=== PATIENT | female | born 1935 | race African-American/Black ===

== ENCOUNTER 2018-02-01 09:15 | Inpatient (IN) ==
--- NOTE | 2018-02-01 09:58 | ED ---
HPI General Chief complaint: GI Bleed Stated complaint: gi Time Seen by Provider: 02/01/18 09:25 Source: patient and family Mode of arrival: ambulatory Limitations: no limitations History of Present Illness HPI Narrative: This is a 82-year-old female with a history of asthma, hyperlipidemia, hypertension, who presents today with complaints of melanotic stool 2 days. Patient reports that she had black sticky stool 2 days ago however over the last 24 hours it has become black and more watery. She denies any bright red blood. She denies any hematemesis. She did states she had emesis 2-3 days ago 1 episode. She denies any decreased urine skin sensation. She does report dyspnea on exertion as well as dizziness on exertion. There is no chest pain, chest pressure. She does report palpitations. No suspicious foods. She does take aspirin 81 mg daily. There are no other blood thinners. MD complaint: melena Onset (ago): day(s) (2) Pain Consistency: intermittent Severity: mild Relieving factors: none Exacerbating factors: none Context: medication/supplement use (Aspirin) Associated symptoms: shortness of breath and weakness Treatments Prior to Arrival: none Related Data Home Medications Medication Instructions Recorded Confirmed aspirin 81 mg PO DAILY 02/01/18 02/01/18 atorvastatin 20 mg PO DAILY 02/01/18 02/01/18 hydrochlorothiazide 12.5 mg PO DAILY 02/01/18 02/01/18 losartan 100 mg PO DAILY 02/01/18 02/01/18 montelukast 10 mg PO QPM 02/01/18 02/01/18 Allergies Allergy/AdvReac Type Severity Reaction Status Date / Time benazepril Allergy Intermediate angioedema Verified 02/01/18 09:27 captopril Allergy Intermediate angioedema Verified 02/01/18 09:27 enalaprilat Allergy Intermediate angioedema Verified 02/01/18 09:27 fosinopril Allergy Intermediate angioedema Verified 02/01/18 09:27 lisinopril Allergy Intermediate angioedema Verified 02/01/18 09:27 quinapril Allergy Intermediate angioedema Verified 02/01/18 09:27 Review of Systems Except as stated in HPI: all other systems reviewed are negative Constitutional Denies chills, Denies fever(s) and Denies headache(s) Eyes Denies blurry vision and Denies diplopia ENT Denies bleeding gums and Reports dizziness Cardiovascular Denies chest pain, Denies diaphoresis, Denies syncope and Reports lightheadedness Respiratory Denies chest congestion, Denies cough and Reports other (Dyspnea on exertion) Gastrointestinal Denies abdominal pain, Reports melena, Denies hematochezia, Denies coffee ground emesis, Denies loose stools and Reports vomiting (1 episode 2 days ago) Genitourinary Denies hematuria, Denies urinary frequency and Denies dysuria Musculoskeletal Denies back pain, Denies myalgias and Denies muscle weakness Integumentary/Breasts Denies bleeding lesions Neurologic Reports dizziness and Denies headache(s) Hematologic/Lymphatic Denies easy bleeding and Denies easy bruising [facility] Medical History Medical History Hypercholesterolemia (Acute) Hypertension (Acute) Social History Social History Substance History: No History of Abuse Smoking Status: Never smoker How Often Do You Have a Drink Containing Alcohol: Never Recent Travel in [facility] within the Last 8 Weeks: No Recent Out of Country Travel within the Last 8 Weeks: No Immunization History Tetanus Immunization: Unsure Exam Narrative Exam Narrative: GENERAL: Well-developed well-nourished female in no acute respiratory distress. SKIN: Focused skin assessment warm/dry. HEAD: Atraumatic. Normocephalic. EYES: Pupils equal and round. No scleral icterus. No injection or drainage. ENT: No nasal bleeding or discharge. Mucous membranes pink and moist. NECK: Trachea midline. Supple. CARDIOVASCULAR: Sinus tachycardia with rate of 103. No murmur appreciated. RESPIRATORY: No accessory muscle use. Clear to auscultation. Breath sounds equal bilaterally. GASTROINTESTINAL: Abdomen soft, non-tender, nondistended. Hepatic and splenic margins not palpable. RECTAL EXAM: No masses or tenderness, stool is dark brown. It immediately turned blue on Hemoccult testing. MUSCULOSKELETAL: No obvious deformities. No clubbing. No cyanosis. No edema. NEUROLOGICAL: Awake and alert. No obvious cranial nerve deficits. Motor grossly within normal limits. Normal speech. Course Initial Documented Vital Signs Temperature 98.6 F 02/01/18 09:18 Pulse Rate 102 H 02/01/18 09:18 Respiratory Rate 16 02/01/18 09:18 Blood Pressure 150/65 H 02/01/18 09:18 Pulse Oximetry 100 02/01/18 09:18 Last Documented Vital Signs Temperature 98.6 F 02/01/18 09:18 Pulse Rate 102 H 02/01/18 09:18 Respiratory Rate 16 02/01/18 09:18 Blood Pressure 150/65 H 02/01/18 09:18 Pulse Oximetry 98 02/01/18 09:25 Medical Decision Making MDM Narrative Medical decision making narrative: 82-year-old female presents today with melena. Patient also reports exertional dyspnea and dizziness. Patient has a hemoglobin of 5.3. She was heme positive on rectal examination. She will be transfused 2 units of packed red blood cells. Cardiac enzymes and EKG are pending at this time. Case was [facility] who agrees for the admission. Patient has been placed on a Protonix drip. Differential Diagnosis Differential Diagnosis: Peptic ulcer disease versus upper GI bleed versus lower GI bleed Lab Data Result diagrams: 02/01/18 09:30 02/01/18 09:30 Lab Results 02/01/18 02/01/18 02/01/18 Range/Units 09:30 09:30 09:30 WBC 10.3 (4.0-11.0) th/mm3 RBC 1.79 L (4.00-5.30) mil/mm3 Hgb 5.6 L* (11.6-15.3) gm/dL Hct 16.6 L* (35.0-46.0) % MCV 92.9 (80.0-100.0) fL MCH 31.1 (27.0-34.0) pg MCHC 33.4 (32.0-36.0) % RDW 14.6 (11.6-17.2) % Plt Count 188 (150-450) th/mm3 MPV 8.9 (7.0-11.0) fL Prelim Diff (Auto) Slide review pending Neut % (Auto) 53.1 (16.0-70.0) % Lymph % (Auto) 35.4 (9.0-44.0) % [place] % (Auto) 9.8 H (0.0-8.0) % Eos % (Auto) 1.4 (0.0-4.0) % Baso % (Auto) 0.3 (0.0-2.0) % Neut # (Auto) 5.5 (1.8-7.7) th/mm3 Lymph # (Auto) 3.7 (1.0-4.8) th/mm3 [place] # (Auto) 1.0 H (0.0-0.9) th/mm3 Eos # (Auto) 0.1 (0.0-0.4) th/mm3 Baso # (Auto) 0.0 (0.0-0.2) th/mm3 WBC Differential . Diff Scan Auto diff confirmed Differential Comment . PT 9.8 (9.8-11.6) sec INR 1.0 Ratio APTT 21.4 L (24.3-30.1) sec Sodium 140 (136-145) meq/L Potassium 3.9 (3.5-5.1) meq/L Chloride 109 H (98-107) meq/L Carbon Dioxide 20.9 L (21.0-32.0) meq/L Anion Gap 10 (5-15) meq/L BUN 73 H (7-18) mg/dL Creatinine 2.01 H (0.50-1.00) mg/dL Estimated GFR 29 L (>89) mL/min Random Glucose 123 H (74-106) mg/dL Calcium 8.6 (8.5-10.1) mg/dL Total Bilirubin 0.3 (0.2-1.0) mg/dL AST 14 L (15-37) U/L ALT 19 (10-53) U/L Alkaline Phosphatase 66 (45-117) U/L Total Protein 6.9 (6.4-8.2) g/dL Albumin 3.4 (3.4-5.0) g/dL Blood Type MTS Gel Crossmatch 02/01/18 02/01/18 Range/Units 09:30 10:46 WBC (4.0-11.0) th/mm3 RBC (4.00-5.30) mil/mm3 Hgb (11.6-15.3) gm/dL Hct (35.0-46.0) % MCV (80.0-100.0) fL MCH (27.0-34.0) pg MCHC (32.0-36.0) % RDW (11.6-17.2) % Plt Count (150-450) th/mm3 MPV (7.0-11.0) fL Prelim Diff (Auto) Neut % (Auto) (16.0-70.0) % Lymph % (Auto) (9.0-44.0) % [place] % (Auto) (0.0-8.0) % Eos % (Auto) (0.0-4.0) % Baso % (Auto) (0.0-2.0) % Neut # (Auto) (1.8-7.7) th/mm3 Lymph # (Auto) (1.0-4.8) th/mm3 [place] # (Auto) (0.0-0.9) th/mm3 Eos # (Auto) (0.0-0.4) th/mm3 Baso # (Auto) (0.0-0.2) th/mm3 WBC Differential Diff Scan Differential Comment PT (9.8-11.6) sec INR Ratio APTT (24.3-30.1) sec Sodium (136-145) meq/L Potassium (3.5-5.1) meq/L Chloride (98-107) meq/L Carbon Dioxide (21.0-32.0) meq/L Anion Gap (5-15) meq/L BUN (7-18) mg/dL Creatinine (0.50-1.00) mg/dL Estimated GFR (>89) mL/min Random Glucose (74-106) mg/dL Calcium (8.5-10.1) mg/dL Total Bilirubin (0.2-1.0) mg/dL AST (15-37) U/L ALT (10-53) U/L Alkaline Phosphatase (45-117) U/L Total Protein (6.4-8.2) g/dL Albumin (3.4-5.0) g/dL Blood Type B Positive MTS Gel Crossmatch See Detail Discharge Plan Discharge Disposition Patient Disposition: 30 Still Patient Discharge Details Diagnosis: Upper gastrointestinal hemorrhage, Melena, Symptomatic anemia, HTN ( hypertension), Dyslipidemia Physicians Team ED Provider: Alphonse Julian Primary Care Provider: Britany Garg Rxs /Orders / Referrals /Forms Prescriptions: No Action atorvastatin 20 mg Tablet 20 mg PO DAILY RF: 0 aspirin 81 mg Tablet,Chewable 81 mg PO DAILY RF: 0 montelukast 10 mg Tablet 10 mg PO QPM RF: 0 losartan 100 mg Tablet 100 mg PO DAILY RF: 0 hydrochlorothiazide 12.5 mg Tablet 12.5 mg PO DAILY RF: 0 Discharge Interventions Interventions: Vital Signs Last Done: 02/01/18 09:18 Status ED Status: With Doctor
[2018-02-01] MEDS ORDERED: Sodium Chlor 0.9% Inj 250 ML IV.SIG SCH (10:00)
[2018-02-01] MEDS: Sod Chloride 0.9% Inj 1,000 ML IV.CONT SCH ×2 (10:06→18:11)
[2018-02-01 10:22] LABS: Baso % (Auto) 0.3 % (0.0-2.0); Eos # (Auto) 0.1 th/mm3 (0.0-0.4); Eos % (Auto) 1.4 % (0.0-4.0); Lymph # (Auto) 3.7 th/mm3 (1.0-4.8); Lymph % (Auto) 35.4 % (9.0-44.0); Mean Corpuscular HGB Conc 33.4 % (32.0-36.0); Mean Corpuscular Hemoglobin 31.1 pg (27.0-34.0); Mean Corpuscular Volume 92.9 fL (80.0-100.0); Mean Platelet Volume 8.9 fL (7.0-11.0); Mono % (Auto) 9.8 % (0.0-8.0); Neut # (Auto) 5.5 th/mm3 (1.8-7.7); Neut % (Auto) 53.1 % (16.0-70.0); Platelet Count 188 th/mm3 (150-450); Red Blood Count 1.79 mil/mm3 (4.00-5.30); Red Cell Distribution Width 14.6 % (11.6-17.2); White Blood Count 10.3 th/mm3 (4.0-11.0)
[2018-02-01 10:30] LABS: Activated Partial Thrombo Time 21.4 sec (24.3-30.1); Hematocrit 16.6 % (35.0-46.0); Hemoglobin 5.6 gm/dL (11.6-15.3); Prothrombin Time 9.8 sec (9.8-11.6)
[2018-02-01 10:41] LABS: Albumin 3.4 g/dL (3.4-5.0); Anion Gap 10 meq/L (5-15); Aspartate Aminotransferase 14 U/L (15-37); Blood Urea Nitrogen 73 mg/dL (7-18); Calcium 8.6 mg/dL (8.5-10.1); Carbon Dioxide 20.9 meq/L (21.0-32.0); Chloride 109 meq/L (98-107); Glomerular Filtration Rate 29 mL/min (>89); Glucose,Random 123 mg/dL (74-106); Potassium 3.9 meq/L (3.5-5.1); Sodium 140 meq/L (136-145)
[2018-02-01] MEDS ORDERED: Pantoprazole Inj 80 MG in Sodium Chlor 0.9% Inj 50 ML IV.SIG ONE (10:42)
[2018-02-01 10:45] LABS: Alanine Aminotransferase 19 U/L (10-53); Alkaline Phosphatase 66 U/L (45-117); Total Protein 6.9 g/dL (6.4-8.2)
[2018-02-01] MEDS: Pantoprazole Inj 80 MG in Sodium Chlor 0.9% Inj 100 ML IV.CONT SCH ×3 (11:03→22:38)
[2018-02-01] MEDS ORDERED: Bisacodyl 10 MG Supp RECTAL PRN (11:56)
[2018-02-01] MEDS ORDERED: Acetaminophen 325 MG Tablet PO PRN (11:56)
--- NOTE | 2018-02-01 13:12 | P.CONGI ---
History of Present Illness Consult date: 02/01/18 Consult reason: Upper GI bleed, symptomatic anemia, melena stools Chief complaint: GI BLEES;SYMPTOMATIC ANEMIA;HTN;HYPERLIPIDEMIA History of Present Illness: This is an obese female who presented to the emergency room today on 02/01/2018. Current symptoms include generalized weakness and fatigue, mild shortness of breath worse with exertion, and dizziness without syncope. Patient also noted symptoms of melena stools for the past 2 days and also notes stools became more dark and watery over the past 24 hours. Patient denies any previous symptoms of rectal bleeding or upper GI bleeding or melena stools or abdominal pain. Patient takes 81 mg of aspirin but no other anticoagulants. Patient also noted some nausea and vomiting 1 after eating some watermelon but is unsure whether it is related to her melena stools and dyspnea. Current labs show hemoglobin 5.6, PT/INR 1, WBC count 10.3, normal bilirubin and normal LFTs. Currently patient denies any further nausea or vomiting and no dysphasia. Patient does note rare dyspepsia last episode this past month after eating oranges or tomatoes. Aggregating factors seem to be related to citrus/acid foods. Patient has a history of constipation but symptoms appear to be functional and patient denies any rectal bleeding and no straining. Last colonoscopy was performed approximately 2 years ago with a history of polyps. Patient states no previous EGD. Positive family (son), history of some unknown type of GI cancer. Patient has 2 daughters who are here at her bedside for supportive care. Patient is awake a fair historian and answered most questions appropriately. <Magda Turpin - Last Filed: 02/01/18 12:53> Review of Systems All other systems reviewed negative except as stated in HPI <Magda Turpin - Last Filed: 02/01/18 12:53> PMFSH - History History Provided By: Patient - Medical History Medical History: Medical History (Last Updated 02/01/18 @ 09:30 by Cherise Dsouza) Hypercholesterolemia Hypertension - Tobacco History Smoking Status: Never smoker - Alcohol History How Often Do You Have a Drink Containing Alcohol: Never - Substance Use History Substance History: No History of Abuse - Travel History Recent Travel in the [place] Within the Last 8 Weeks: No Recent Travel Out of the Country Within the Last 8 Weeks: No - Immunization History Tetanus Immunization: Unsure <Magda Turpin - Last Filed: 02/01/18 12:53> - Medical History Medical History: Medical History (Last Updated 02/01/18 @ 09:30 by Cherise Dsouza) Hypercholesterolemia Hypertension <Yosvany De La O - Last Filed: 02/01/18 15:49> Medications and Allergies Active Medications: Active Medications Acetaminophen (Tylenol) 650 mg PO Q4H PRN PRN Reason: Temp > 100.4 Al Hydroxide/Mg Hydroxide (Milk Of Magnesia Liq) 30 ml PO Q12H PRN PRN Reason: Mild Constipation Bisacodyl (Dulcolax Supp) 10 mg RECTAL DAILY PRN PRN Reason: SEVERE CONSITIPATION Sodium Chloride (Ns Inj) 1,000 mls @ 125 mls/hr IV.CONT .Q8H ROSE Last Admin: 02/01/18 10:06 Dose: 125 mls/hr Sodium Chloride (Ns Inj) 250 mls @ 15 mls/hr IV.SIG ONCE RSOE Stop: 02/02/18 02:39 Pantoprazole Sodium 80 mg/ (Sodium Chloride) 100 mls @ 10 mls/hr IV.CONT CONT ROSE Last Admin: 02/01/18 11:06 Dose: 10 mls/hr Potassium Chloride/Dextrose/Sod Cl (D5w/1/2ns + Kcl 20 Meq Inj) 1,000 mls @ 75 mls/hr IV.CONT .[id number] ROSE Lactulose (Lactulose Liq) 30 ml PO DAILY PRN PRN Reason: SEVERE CONSITIPATION Ondansetron HCl (Zofran Odt) 4 mg SL Q6H PRN PRN Reason: NAUSEA OR VOMITING Sennosides (Senokot) 17.2 mg PO Q12H PRN PRN Reason: Moderate Constipation Sodium Chloride (Ns Flush) 2 ml IV.FLUSH PRN PRN PRN Reason: FLUSH AFTER USING IV ACCESS Last Admin: 02/01/18 10:06 Dose: 2 ml Sodium Chloride (Ns Flush) 2 ml IV.FLUSH BID ROSE Sodium Chloride (Ns Flush) 2 ml IV.FLUSH PRN PRN PRN Reason: FLUSH AFTER USING IV ACCESS <Magda Turpin - Last Filed: 02/01/18 12:53> Active Medications: Active Medications Acetaminophen (Tylenol) 650 mg PO Q4H PRN PRN Reason: Temp > 100.4 Al Hydroxide/Mg Hydroxide (Milk Of Magnesia Liq) 30 ml PO Q12H PRN PRN Reason: Mild Constipation Bisacodyl (Dulcolax Supp) 10 mg RECTAL DAILY PRN PRN Reason: SEVERE CONSITIPATION Sodium Chloride (Ns Inj) 1,000 mls @ 125 mls/hr IV.CONT .Q8H [facility] Last Admin: 02/01/18 10:06 Dose: 125 mls/hr Sodium Chloride (Ns Inj) 250 mls @ 15 mls/hr IV.SIG ONCE [facility] Stop: 02/02/18 02:39 Pantoprazole Sodium 80 mg/ (Sodium Chloride) 100 mls @ 10 mls/hr IV.CONT CONT [facility] Last Admin: 02/01/18 11:06 Dose: 10 mls/hr Potassium Chloride/Dextrose/Sod Cl (D5w/1/2ns + Kcl 20 Meq Inj) 1,000 mls @ 75 mls/hr IV.CONT .[id number] [facility] Last Admin: 02/01/18 13:32 Dose: 75 mls/hr Lactulose (Lactulose Liq) 30 ml PO DAILY PRN PRN Reason: SEVERE CONSITIPATION Ondansetron HCl (Zofran Odt) 4 mg SL Q6H PRN PRN Reason: NAUSEA OR VOMITING Sennosides (Senokot) 17.2 mg PO Q12H PRN PRN Reason: Moderate Constipation Sodium Chloride (Ns Flush) 2 ml IV.FLUSH PRN PRN PRN Reason: FLUSH AFTER USING IV ACCESS Last Admin: 02/01/18 10:06 Dose: 2 ml Sodium Chloride (Ns Flush) 2 ml IV.FLUSH BID ROSE Sodium Chloride (Ns Flush) 2 ml IV.FLUSH PRN PRN PRN Reason: FLUSH AFTER USING IV ACCESS <Yosvany De La O E - Last Filed: 02/01/18 15:49> Allergies Allergy/AdvReac Type Severity Reaction Status Date / Time benazepril Allergy Intermediate angioedema Verified 02/01/18 09:27 captopril Allergy Intermediate angioedema Verified 02/01/18 09:27 enalaprilat Allergy Intermediate angioedema Verified 02/01/18 09:27 fosinopril Allergy Intermediate angioedema Verified 02/01/18 09:27 lisinopril Allergy Intermediate angioedema Verified 02/01/18 09:27 quinapril Allergy Intermediate angioedema Verified 02/01/18 09:27 Home Medications Medication Instructions Recorded Confirmed Type aspirin 81 mg PO DAILY 02/01/18 02/01/18 History atorvastatin 20 mg PO DAILY 02/01/18 02/01/18 History hydrochlorothiazide 12.5 mg PO DAILY 02/01/18 02/01/18 History losartan 100 mg PO DAILY 02/01/18 02/01/18 History montelukast 10 mg PO QPM 02/01/18 02/01/18 History Exam Vital signs: Vital Signs 02/01/18 09:18 02/01/18 09:25 02/01/18 10:53 Temperature 98.6 F Pulse Rate 102 H Respiratory Rate 16 Blood Pressure 150/65 H Pulse Oximetry 100 98 97 Intake & Output 01/31/18 02/01/18 02/01/18 18:59 06:59 18:59 Intake Total 150 / 150 Balance 150 / 150 Weight 95.254 kg Intake: IV 150 / 150 Protonix Inj 80 MG In NS Inj 100 / 100 100 ML @ 10 mls/hr IV.CONT CONT ROSE Rx#:[id number] Protonix Inj 80 MG In NS Inj 50 50 / 50 ML @ 600 mls/hr IV.SIG BOLUS ONE Rx#:[id number] - Constitutional mild distress, morbidly obese - Routine HEENT Exam Head: Present: normocephalic, atraumatic ENT: Present: mucous membranes dry - Routine Neck Exam Present: supple - Routine Cardiovascular Exam Present: RRR (Heart rate 102), tachycardia - Routine Abdominal Exam Present: soft, normoactive bowel sounds (Round, bowel sounds active no obvious pain with light palpation) - Routine Skin Exam Present: intact, pallor (Mucous membranes) - Routine Neurological Exam Present: alert (Answer simple questions) <Magda Turpin - Last Filed: 02/01/18 12:53> Vital signs: Vital Signs 02/01/18 09:18 02/01/18 09:25 02/01/18 10:53 Temperature 98.6 F Pulse Rate 102 H Respiratory Rate 16 Blood Pressure 150/65 H Pulse Oximetry 100 98 97 02/01/18 13:32 02/01/18 14:41 07/20/18 14:51 Temperature 98.3 F 98.4 F Pulse Rate 76 74 72 Respiratory Rate 18 18 Blood Pressure 147/82 H 121/57 L 107/52 L Pulse Oximetry 100 98 Intake & Output 01/31/18 02/01/18 02/01/18 18:59 06:59 18:59 Intake Total 150 / 150 Balance 150 / 150 Weight 95.254 kg Intake: IV 150 / 150 Protonix Inj 80 MG In NS Inj 100 / 100 100 ML @ 10 mls/hr IV.CONT CONT ROSE Rx#:[id number] Protonix Inj 80 MG In NS Inj 50 50 / 50 ML @ 600 mls/hr IV.SIG BOLUS ONE Rx#:[id number] Intake (Blood Product) Amt 0 / 0 Rbc As-3 Leukoreduced Unit 0 / 0 [id number] <Yosvany De La O E - Last Filed: 02/01/18 15:49> Results - Labs CBC & Chem 7: 02/01/18 09:30 02/01/18 09:30 Labs: Laboratory Results - last 24 hr 02/01/18 02/01/18 02/01/18 09:30 09:30 09:30 WBC 10.3 RBC 1.79 L Hgb 5.6 L* Hct 16.6 L* MCV 92.9 MCH 31.1 MCHC 33.4 RDW 14.6 Plt Count 188 MPV 8.9 Prelim Diff (Auto) Slide review pending Neut % (Auto) 53.1 Lymph % (Auto) 35.4 [place] % (Auto) 9.8 H Eos % (Auto) 1.4 Baso % (Auto) 0.3 Neut # (Auto) 5.5 Lymph # (Auto) 3.7 [place] # (Auto) 1.0 H Eos # (Auto) 0.1 Baso # (Auto) 0.0 WBC Differential . Diff Scan Auto diff confirmed Differential Comment . PT 9.8 INR 1.0 APTT 21.4 L Sodium 140 Potassium 3.9 Chloride 109 H Carbon Dioxide 20.9 L Anion Gap 10 BUN 73 H Creatinine 2.01 H Estimated GFR 29 L Random Glucose 123 H Calcium 8.6 Total Bilirubin 0.3 AST 14 L ALT 19 Alkaline Phosphatase 66 Total Protein 6.9 Albumin 3.4 Blood Type Antibody Screen Antibody Identification Antigen Identification MTS Gel Crossmatch 02/01/18 02/01/18 02/01/18 09:30 10:46 12:30 WBC RBC Hgb Hct MCV MCH MCHC RDW Plt Count MPV Prelim Diff (Auto) Neut % (Auto) Lymph % (Auto) [place] % (Auto) Eos % (Auto) Baso % (Auto) Neut # (Auto) Lymph # (Auto) [place] # (Auto) Eos # (Auto) Baso # (Auto) WBC Differential Diff Scan Differential Comment PT INR APTT Sodium Potassium Chloride Carbon Dioxide Anion Gap BUN Creatinine Estimated GFR Random Glucose Calcium Total Bilirubin AST ALT Alkaline Phosphatase Total Protein Albumin Blood Type B Positive Antibody Screen Positive H Antibody Identification Anti-E Antigen Identification E Antigen - NEGATIVE MTS Gel Crossmatch See Detail <Magda Turpin - Last Filed: 02/01/18 12:53> - Labs CBC & Chem 7: 02/01/18 09:30 02/01/18 09:30 Labs: Laboratory Results - last 24 hr 02/01/18 02/01/18 02/01/18 09:30 09:30 09:30 WBC 10.3 RBC 1.79 L Hgb 5.6 L* Hct 16.6 L* MCV 92.9 MCH 31.1 MCHC 33.4 RDW 14.6 Plt Count 188 MPV 8.9 Prelim Diff (Auto) Slide review pending Neut % (Auto) 53.1 Lymph % (Auto) 35.4 [place] % (Auto) 9.8 H Eos % (Auto) 1.4 Baso % (Auto) 0.3 Neut # (Auto) 5.5 Lymph # (Auto) 3.7 [place] # (Auto) 1.0 H Eos # (Auto) 0.1 Baso # (Auto) 0.0 WBC Differential . Diff Scan Auto diff confirmed Differential Comment . PT 9.8 INR 1.0 APTT 21.4 L Sodium 140 Potassium 3.9 Chloride 109 H Carbon Dioxide 20.9 L Anion Gap 10 BUN 73 H Creatinine 2.01 H Estimated GFR 29 L Random Glucose 123 H Calcium 8.6 Total Bilirubin 0.3 AST 14 L ALT 19 Alkaline Phosphatase 66 Total Protein 6.9 Albumin 3.4 Blood Type Antibody Screen Antibody Identification Antigen Identification MTS Gel Crossmatch 02/01/18 02/01/18 02/01/18 09:30 10:46 12:30 WBC RBC Hgb Hct MCV MCH MCHC RDW Plt Count MPV Prelim Diff (Auto) Neut % (Auto) Lymph % (Auto) [place] % (Auto) Eos % (Auto) Baso % (Auto) Neut # (Auto) Lymph # (Auto) [place] # (Auto) Eos # (Auto) Baso # (Auto) WBC Differential Diff Scan Differential Comment PT INR APTT Sodium Potassium Chloride Carbon Dioxide Anion Gap BUN Creatinine Estimated GFR Random Glucose Calcium Total Bilirubin AST ALT Alkaline Phosphatase Total Protein Albumin Blood Type B Positive Antibody Screen Positive H Antibody Identification Non-Specific Agglutinin Antigen Identification E Antigen - NEGATIVE MTS Gel Crossmatch See Detail <Yosvany De La O E - Last Filed: 02/01/18 15:49> Assessment and Plan (1) History of constipation Status: Acute Code(s): Z87.19 - Personal history of other diseases of the digestive system (2) Upper gastrointestinal hemorrhage Status: Acute Code(s): K92.2 - Gastrointestinal hemorrhage, unspecified (3) Melena Status: Acute Code(s): K92.1 - Melena (4) Symptomatic anemia Status: Acute Code(s): D64.9 - Anemia, unspecified - Plan 82-year-old obese female presented to the emergency room on 02/01/2018 with the following symptoms: Symptomatic anemia. Current hemoglobin 5.6 on admission to the emergency room. No leukocytosis current WBC count 10.3. Patient takes aspirin 81 mg daily. Melena stools, 2 day onset with some watery melena stool for the last 24 hours. No previous history known Nausea and vomiting 1 after eating watermelon, 2 day onset, unaware if it is related to her anemia symptoms. Dyspnea probably related to symptomatic anemia Dizziness near syncopal episode secondary to symptomatic anemia probable Positive family history with patient's son, GI cancer, unknown what type. History of polyps, colonoscopy approximately 2 years ago and states her next colonoscopy will be due next year No previous EGD to patient's recollection. Other labs show normal bilirubin and normal LFTs. Plan Diet n.p.o. for now, patient has not eaten anything today or drink anything Consent for EGD today after 3 PM Transfuse before EGD, 2 units ordered, blood not ready yet Protonix drip IV hydration IV fluids Monitor labs Bowel regimen as needed Further recommendations to follow Patient was seen per myself and Dr. De La O, this note was written on his behalf. <Magda Turpin M - Last Filed: 02/01/18 12:53> (1) History of constipation Status: Acute Code(s): Z87.19 - Personal history of other diseases of the digestive system (2) Upper gastrointestinal hemorrhage Status: Acute Code(s): K92.2 - Gastrointestinal hemorrhage, unspecified (3) Melena Status: Acute Code(s): K92.1 - Melena (4) Symptomatic anemia Status: Acute Code(s): D64.9 - Anemia, unspecified - Attending Attestation Patient seen and examined Agree with above Continue with current supportive care Monitor labs EGD today <Ysovany De La O E - Last Filed: 02/01/18 15:49>
[2018-02-01] MEDS: KCL 20 mEq/D5W/NaCl 0.45% Inj 1,000 ML IV.CONT SCH (13:32)
[2018-02-01] MEDS ORDERED: Dextrose 50% in Water 50 ML Vial IV.PUSH PRN (15:50)
--- NOTE | 2018-02-01 15:50 | P.HPIM ---
History of Present Illness Primary Care Physician: [facility] Chief Complaint: Black stools History of Present Illness: 82-year-old female with a history of hypertension hyperlipidemia, borderline diabetes mellitus type 2 presents to emergency room with a 2 day history of having black tarry stools and symptoms of increased fatigue and mild shortness of breath at rest. she denies any bloody stools. She reports her stools has been more loose than normal but did not have any diarrhea. She denies any unusual oral food intake over the past week. She does take aspirin on a daily basis and does not take any [id number] NSAIDs. She denies any significant abdominal pain associated with the symptoms. She denies any symptoms of dysuria or frequency urgency. Inpatient Certification: I certify that the inpatient services were ordered in accordance with Medicare regulations governing the order. This includes certification that hospital inpatient services are reasonable and necessary and in the case of services not specified as inpatient-only under 42 CFR 419.22(n), that they are appropriately provided as inpatient services in accordance to with the 2-midnight benchmark under 43 CFR 412.3(e) Estimated Total Length of Stay (Days): 3 Plans for Post Hospital Care: Not yet determined Review of Systems All other systems reviewed negative except as stated in HPI PMFSH - History History Provided By: Patient - Medical History Medical History: Medical History (Last Updated 02/01/18 @ 15:45 by Kyra Long MD) Diabetes Hypercholesterolemia Hypertension - Surgical History Surgical History: Surgical History (Last Updated 02/01/18 @ 15:46 by Kyra Long MD) H/O removal of cyst - Family History Family History: Family History (Last Updated 02/01/18 @ 15:46 by yKra Long MD) Mother Family history of hypertension - Tobacco History Second Hand Smoke Exposure: No Smoking Status: Never smoker - Alcohol History How Often Do You Have a Drink Containing Alcohol: Never - Substance Use History Substance History: No History of Abuse - Travel History Recent Travel in the [place] Within the Last 8 Weeks: No Recent Travel Out of the Country Within the Last 8 Weeks: No - Immunization History Tetanus Immunization: Unsure Medications and Allergies Active Medications: Active Medications Acetaminophen (Tylenol) 650 mg PO Q4H PRN PRN Reason: Temp > 100.4 Al Hydroxide/Mg Hydroxide (Milk Of Magnesia Liq) 30 ml PO Q12H PRN PRN Reason: Mild Constipation Bisacodyl (Dulcolax Supp) 10 mg RECTAL DAILY PRN PRN Reason: SEVERE CONSITIPATION Sodium Chloride (Ns Inj) 1,000 mls @ 125 mls/hr IV.CONT .Q8H PENDING SALE TO [facility] Last Admin: 02/01/18 10:06 Dose: 125 mls/hr Sodium Chloride (Ns Inj) 250 mls @ 15 mls/hr IV.SIG ONCE PENDING SALE TO [facility] Stop: 02/02/18 02:39 Pantoprazole Sodium 80 mg/ (Sodium Chloride) 100 mls @ 10 mls/hr IV.CONT CONT PENDING SALE TO [facility] Last Admin: 02/01/18 11:06 Dose: 10 mls/hr Potassium Chloride/Dextrose/Sod Cl (D5w/1/2ns + Kcl 20 Meq Inj) 1,000 mls @ 75 mls/hr IV.CONT .[id number] PENDING SALE TO [facility] Last Admin: 02/01/18 13:32 Dose: 75 mls/hr Lactulose (Lactulose Liq) 30 ml PO DAILY PRN PRN Reason: SEVERE CONSITIPATION Ondansetron HCl (Zofran Odt) 4 mg SL Q6H PRN PRN Reason: NAUSEA OR VOMITING Sennosides (Senokot) 17.2 mg PO Q12H PRN PRN Reason: Moderate Constipation Sodium Chloride (Ns Flush) 2 ml IV.FLUSH PRN PRN PRN Reason: FLUSH AFTER USING IV ACCESS Last Admin: 02/01/18 10:06 Dose: 2 ml Sodium Chloride (Ns Flush) 2 ml IV.FLUSH BID PENDING SALE TO [facility] Sodium Chloride (Ns Flush) 2 ml IV.FLUSH PRN PRN PRN Reason: FLUSH AFTER USING IV ACCESS Allergies Allergy/AdvReac Type Severity Reaction Status Date / Time benazepril Allergy Intermediate angioedema Verified 02/01/18 09:27 captopril Allergy Intermediate angioedema Verified 02/01/18 09:27 enalaprilat Allergy Intermediate angioedema Verified 02/01/18 09:27 fosinopril Allergy Intermediate angioedema Verified 02/01/18 09:27 lisinopril Allergy Intermediate angioedema Verified 02/01/18 09:27 quinapril Allergy Intermediate angioedema Verified 02/01/18 09:27 Home Medications Medication Instructions Recorded Confirmed Type aspirin 81 mg PO DAILY 02/01/18 02/01/18 History atorvastatin 20 mg PO DAILY 02/01/18 02/01/18 History hydrochlorothiazide 12.5 mg PO DAILY 02/01/18 02/01/18 History losartan 100 mg PO DAILY 02/01/18 02/01/18 History montelukast 10 mg PO QPM 02/01/18 02/01/18 History Exam Vital signs: Vital Signs 02/01/18 09:18 02/01/18 09:25 02/01/18 10:53 Temperature 98.6 F Pulse Rate 102 H Respiratory Rate 16 Blood Pressure 150/65 H Pulse Oximetry 100 98 97 02/01/18 13:32 02/01/18 14:41 02/01/18 14:51 Temperature 98.3 F 98.4 F Pulse Rate 76 74 72 Respiratory Rate 19 18 18 Blood Pressure 147/82 H 121/57 L 107/52 L Pulse Oximetry 100 98 Intake & Output 01/31/18 02/01/18 02/01/18 18:59 06:59 18:59 Intake Total 150 / 150 Balance 150 / 150 Weight 95.254 kg Intake: IV 150 / 150 Protonix Inj 80 MG In NS Inj 100 / 100 100 ML @ 10 mls/hr IV.CONT [facility] Rx#:[id number] Protonix Inj 80 MG In NS Inj 50 50 / 50 ML @ 600 mls/hr IV.SIG BOLUS ONE Rx#:[id number] Intake (Blood Product) Amt 0 / 0 Rbc As-3 Leukoreduced Unit 0 / 0 [id number] Narrative: GENERAL: Well-nourished well-developed -[place] female in no acute distress SKIN: Warm and dry. HEAD: Atraumatic. Normocephalic. EYES: Pupils equal and round. No scleral icterus. No injection or drainage. ENT: No nasal bleeding or discharge. Mucous membranes pink and moist. NECK: Trachea midline. No JVD. CARDIOVASCULAR: Regular rate and rhythm. RESPIRATORY: No accessory muscle use. Clear to auscultation. Breath sounds equal bilaterally. GASTROINTESTINAL: Abdomen soft, obese, non-tender, nondistended. Hepatic and splenic margins not palpable. MUSCULOSKELETAL: Extremities without clubbing, cyanosis, or edema. No obvious deformities. NEUROLOGICAL: Awake and alert to person place time and situation. No obvious cranial nerve deficits. Motor grossly within normal limits. Five out of 5 muscle strength in the arms and legs. Normal speech. PSYCHIATRIC: Appropriate mood and affect; insight and judgment normal. Results - Labs CBC & Chem 7: 02/01/18 09:30 02/01/18 09:30 Labs: Short CBC 02/01/18 Range/Units 09:30 WBC 10.3 (4.0-11.0) th/mm3 Hgb 5.6 L* (11.6-15.3) gm/dL Hct 16.6 L* (35.0-46.0) % Plt Count 188 (150-450) th/mm3 BMP 02/01/18 09:30 Sodium 140 Potassium 3.9 Chloride 109 H Carbon Dioxide 20.9 L BUN 73 H Creatinine 2.01 H Calcium 8.6 Liver Function 02/01/18 Range/Units 09:30 Total Bilirubin 0.3 (0.2-1.0) mg/dL AST 14 L (15-37) U/L ALT 19 (10-53) U/L Alkaline Phosphatase 66 (45-117) U/L Albumin 3.4 (3.4-5.0) g/dL Caprini VTE Risk Assessment Caprini VTE Risk Assessment: Moderate/High Risk (score >= 2) VTE Pharmacological Exception Reason: Active bleeding Caprini Risk Assessment Model: Point Value = 1 Point Value = 2 Point Value = 3 Point Value = 5 Age 41-60 Minor surgery BMI > 25 kg/m2 Swollen legs Varicose veins or History of unexplained or recurrent spontaneous Oral contraceptives or hormone replacement Sepsis (< 1 month) Serious lung disease, including pneumonia (< 1 month) Abnormal pulmonary function Acute myocardial infarction Congestive heart failure (< 1 month) History of inflammatory bowel disease Medical patient at bed rest Age 61-74 Arthroscopic surgery Major open surgery (> 45 min) Laparoscopic surgery (> 45 min) Malignancy Confined to bed (> 72 hours) Immobilizing plaster cast Central venous access Age >= 75 History of VTE Family history of VTE Factor V Leiden Prothrombin [id number] Lupus anticoagulant Anticardiolipin antibodies Elevated serum homocysteine Heparin-induced thrombocytopenia Other congenital or acquired thrombophilia Stroke (< 1 month) Elective arthroplasty Hip, pelvis, or leg fracture Acute spinal cord injury (< 1 month) Prophylaxis Regimen: Total Risk Factor Score Risk Level Prophylaxis Regimen 0-1 Low Early ambulation 2 Moderate Order ONE of the following: *Sequential Compression Device (SCD) *Heparin 5000 units SQ BID 3-4 Higher Order ONE of the following medications: *Heparin 5000 units SQ TID *Enoxaparin/Lovenox 40 mg SQ daily (WT < 150 kg, CrCl > 30 mL/min) *Enoxaparin/Lovenox 30 mg SQ daily (WT < 150 kg, CrCl > 10-29 mL/min) *Enoxaparin/Lovenox 30 mg SQ BID (WT < 150 kg, CrCl > 30 mL/min) AND/OR *Sequential Compression Device (SCD) 5 or more Highest Order ONE of the following medications: *Heparin 5000 units SQ TID (Preferred with Epidurals) *Enoxaparin/Lovenox 40 mg SQ daily (WT < 150 kg, CrCl > 30 mL/min) *Enoxaparin/Lovenox 30 mg SQ daily (WT < 150 kg, CrCl > 10-29 mL/min) *Enoxaparin/Lovenox 30 mg SQ BID (WT < 150 kg, CrCl > 30 mL/min) AND *Sequential Compression Device (SCD) Assessment and Plan - Plan 82-year-old female with a history of hypertension hyperlipidemia on aspirin 81 mg p.o. daily presents with 2 day history of black tarry stools 1. Severe anemia with upper GI bleed -transfuse 2 units of packed red blood cell and monitor hemoglobin hematocrit. GI consult has been placed and patient is currently n.p.o. for EGD evaluation. Continue with Protonix drip, aspirin currently on hold. 2. Hypertensionantihypertensive currently on hold due to G I bleed, will restart when stabilized. 3. Hyperlipidemiaresume home statin 4. Diabetes mellitus, diet controlledAccu-Cheks with sliding scale insulin 5. Acute kidney injury superimposed on suspecting chronic kidney disease stage III likely due to GI bleed and dehydrationIV fluid hydration and repeat BUN/ creatinine. Avoid nephrotoxins. 6. DVT prophylaxisanticoagulation contraindicated secondary to active GI bleed H&P: Quality - VTE Deep Vein Thrombosis/Pulmonary Embolism Present on Admission: No
--- NOTE | 2018-02-01 16:34 | P.PCN ---
Date of procedure: 02/01/18 Pre-op diagnosis: Upper GI bleed, anemia Procedure: PROCEDURE PERFORMED EGD with biopsies INDICATION FOR PROCEDURE Upper GI bleed, anemia PROCEDURE: The procedure, risks and benefits were discussed with Patient/POA and informed consent was obtained. Anesthesia sedated Patient with Diprivan. Patient was placed in the left lateral decubitus position. EGD: The Pentax videoscope was introduced through the oropharynx and advanced to the second portion of the duodenum under direct visualization. Retroflexion was performed in the stomach. FINDINGS: The esophagus this was unremarkable except for irregularity at the Z line suggestive of possible Goff's this was biopsied The stomach the mucosa appeared to be unremarkable within normal limits there was an antral nodule possibly even a submucosal mass with a dimple possibly suggesting pancreatic rest biopsy was taken for further evaluation if negative consider endoscopic ultrasound The duodenum there were linear ulcerations in the duodenal bulb with no obvious visible vessel and no active bleeding this area was biopsied the rest of the duodenum was unremarkable ESTIMATED BLOOD LOSS: None SPECIMENS REMOVED: Gastric and duodenal biopsies COMPLICATIONS: None IMPRESSION: Irregular Z line Antral nodule/submucosal mass Duodenal ulcer PLAN: Await biopsies Avoid NSAIDs and aspirin Continue with PPI Advance diet as tolerated Monitor labs and transfuse as needed Consider endoscopic ultrasound as an outpatient in 2-3 months Anesthesia: MAC Surgeon: Yosvany De La O Condition: stable Disposition: floor
[2018-02-01 18:14] LABS: Creatine Kinase 285 U/L (26-192)
[2018-02-01 18:26] LABS: CKMB Percent 1.4 % (0.0-4.0); Creatine Kinase MB 4.1 ng/mL (0.5-3.6)
[2018-02-01] MEDS: Insulin NovoLOG Aspart Correctional Sugar Inj SQ SCH ×2 (18:32→21:31)
[2018-02-02 00:45] LABS: Hematocrit 20.4 % (35.0-46.0); Hemoglobin 6.9 gm/dL (11.6-15.3)
[2018-02-02] MEDS: KCL 20 mEq/D5W/NaCl 0.45% Inj 1,000 ML IV.CONT SCH ×2 (05:35→18:07)
[2018-02-02] MEDS: Sod Chloride 0.9% Inj 1,000 ML IV.CONT SCH ×3 (05:36→19:41)
[2018-02-02] MEDS ORDERED: Pantoprazole Inj 80 MG in Sodium Chlor 0.9% Inj 100 ML IV.CONT SCH (09:00)
[2018-02-02] MEDS: Insulin NovoLOG Aspart Correctional Sugar Inj SQ SCH ×4 (09:00→21:14)
--- NOTE | 2018-02-02 10:43 | P.PNIM ---
Subjective Interval history: Mrs. Maharaj was afebrile with stable vital signs overnight. Patient states that she had a small bowel movement this morning; she noticed a spot of dark stool but that she did not see obvious blood. Patient agreeable to trying to advance diet. Patient reports that she is feeling better than previously and no longer feels short of breath. No abdominal pain. Frequent urination on IV fluids. Physical Exam Vital signs: Vital Signs 02/01/18 10:53 02/01/18 13:32 02/01/18 14:41 Temperature 98.3 F Pulse Rate 76 74 Respiratory Rate 19 18 Blood Pressure 147/82 H 121/57 L Pulse Oximetry 97 100 02/01/18 14:51 02/01/18 16:41 02/01/18 18:35 Temperature 98.4 F 98.6 F 98.3 F Pulse Rate 72 63 70 Respiratory Rate 18 18 17 Blood Pressure 107/52 L 123/56 L 109/53 L Pulse Oximetry 98 99 98 02/01/18 18:37 02/01/18 20:00 02/02/18 00:00 Temperature 98.2 F 98 F 98.1 F Pulse Rate 64 55 L 55 L Respiratory Rate 17 19 15 Blood Pressure 122/59 L 106/54 L Pulse Oximetry 100 100 02/02/18 04:00 02/02/18 08:00 Temperature 98 F 98.0 F Pulse Rate 56 L 50 L Respiratory Rate 15 18 Blood Pressure 110/59 L 108/54 L Pulse Oximetry 100 100 Intake & Output 02/01/18 02/02/18 02/02/18 18:59 06:59 18:59 Intake Total 400 / 400 1100 / 1100 100 / 100 Balance 400 / 400 1100 / 1100 100 / 100 Weight 95.254 kg 96 kg Intake: IV 150 / 150 1100 / 1100 100 / 100 D5W/1/2NS + KCL 20 mEq Inj 1, 1000 / 1000 000 ML @ 75 mls/hr IV.CONT . [id number] [facility] Rx#:[id number] Protonix Inj 80 MG In NS Inj 100 / 100 100 / 100 100 / 100 100 ML @ 10 mls/hr IV.CONT CONT [facility] Rx#:[id number] Protonix Inj 80 MG In NS Inj 50 50 / 50 ML @ 600 mls/hr IV.SIG BOLUS ONE Rx#:[id number] Oral 0 / 0 Anesthesia Amount 250 / 250 Intake (Blood Product) Amt 0 / 0 0 / 0 Rbc As-3 Leukoreduced Unit 0 / 0 [id number] Rbc As-3 Leukoreduced Unit 0 / 0 0 / 0 [id number] Other: # Voids 5 Date of Last Bowel Movement 02/01/18 Narrative: GENERAL: NAD SKIN: Warm and dry; no lesions EYES: EOM grossly I CARDIOVASCULAR: Regular rate and rhythm. Normal perfusion RESPIRATORY: CTAB; normal rate GASTROINTESTINAL: Abdomen soft, non-tender, nondistended MUSCULOSKELETAL: Grossly normal ROM and strength NEUROLOGICAL: Grossly normal CN; grossly normal peripheral motor/sensory function PSYCHIATRIC: Appropriate mood and affect; insight and judgment normal. Results - Labs CBC & Chem 7: 02/01/18 23:59 02/01/18 09:30 Laboratory Results - last 24 hr 02/01/18 02/01/18 02/01/18 09:30 09:30 09:30 WBC 10.3 RBC 1.79 L Hgb 5.6 L* Hct 16.6 L* MCV 92.9 MCH 31.1 MCHC 33.4 RDW 14.6 Plt Count 188 MPV 8.9 Prelim Diff (Auto) Slide review pending Neut % (Auto) 53.1 Lymph % (Auto) 35.4 Mcdonough % (Auto) 9.8 H Eos % (Auto) 1.4 Baso % (Auto) 0.3 Neut # (Auto) 5.5 Lymph # (Auto) 3.7 Mcdonough # (Auto) 1.0 H Eos # (Auto) 0.1 Baso # (Auto) 0.0 WBC Differential . Diff Scan Auto diff confirmed Differential Comment . PT 9.8 INR 1.0 APTT 21.4 L Sodium 140 Potassium 3.9 Chloride 109 H Carbon Dioxide 20.9 L Anion Gap 10 BUN 73 H Creatinine 2.01 H Estimated GFR 29 L POC Glucose Random Glucose 123 H Calcium 8.6 Total Bilirubin 0.3 AST 14 L ALT 19 Alkaline Phosphatase 66 Total Creatine Kinase CK-MB (CK-2) CK-MB (CK-2) % Troponin I Total Protein 6.9 Albumin 3.4 Blood Type Antibody Screen Antibody Identification Antigen Identification MTS Gel Crossmatch 02/01/18 02/01/18 02/01/18 09:30 09:30 10:46 WBC RBC Hgb Hct MCV MCH MCHC RDW Plt Count MPV Prelim Diff (Auto) Neut % (Auto) Lymph % (Auto) Mcdonough % (Auto) Eos % (Auto) Baso % (Auto) Neut # (Auto) Lymph # (Auto) Mcdonough # (Auto) Eos # (Auto) Baso # (Auto) WBC Differential Diff Scan Differential Comment PT INR APTT Sodium Potassium Chloride Carbon Dioxide Anion Gap BUN Creatinine Estimated GFR POC Glucose Random Glucose Calcium Total Bilirubin AST ALT Alkaline Phosphatase Total Creatine Kinase 285 H CK-MB (CK-2) 4.1 H CK-MB (CK-2) % 1.4 Troponin I Less than 0.02 L Total Protein Albumin Blood Type B Positive Antibody Screen Positive H Antibody Identification Antigen Identification E Antigen - NEGATIVE MTS Gel Crossmatch See Detail 02/01/18 02/01/18 02/01/18 12:30 18:31 21:31 WBC RBC Hgb Hct MCV MCH MCHC RDW Plt Count MPV Prelim Diff (Auto) Neut % (Auto) Lymph % (Auto) Mcdonough % (Auto) Eos % (Auto) Baso % (Auto) Neut # (Auto) Lymph # (Auto) Mcdonough # (Auto) Eos # (Auto) Baso # (Auto) WBC Differential Diff Scan Differential Comment PT INR APTT Sodium Potassium Chloride Carbon Dioxide Anion Gap BUN Creatinine Estimated GFR POC Glucose 99 113 H Random Glucose Calcium Total Bilirubin AST ALT Alkaline Phosphatase Total Creatine Kinase CK-MB (CK-2) CK-MB (CK-2) % Troponin I Total Protein Albumin Blood Type Antibody Screen Antibody Identification Non-Specific Agglutinin Antigen Identification MTS Gel Crossmatch 02/01/18 02/02/18 23:59 08:36 WBC RBC Hgb 6.9 L* Hct 20.4 L* MCV MCH MCHC RDW Plt Count MPV Prelim Diff (Auto) Neut % (Auto) Lymph % (Auto) Mcdonough % (Auto) Eos % (Auto) Baso % (Auto) Neut # (Auto) Lymph # (Auto) Mcdonough # (Auto) Eos # (Auto) Baso # (Auto) WBC Differential Diff Scan Differential Comment PT INR APTT Sodium Potassium Chloride Carbon Dioxide Anion Gap BUN Creatinine Estimated GFR POC Glucose 129 H Random Glucose Calcium Total Bilirubin AST ALT Alkaline Phosphatase Total Creatine Kinase CK-MB (CK-2) CK-MB (CK-2) % Troponin I Total Protein Albumin Blood Type Antibody Screen Antibody Identification Antigen Identification MTS Gel Crossmatch Assessment and Plan - Plan 82-year-old female with a history of hypertension hyperlipidemia on aspirin 81 mg p.o. daily presents with 2 day history of black tarry stools Upper GI bleed Impression: 2 day history of melena. EGD 02/01- esophagus with possible Goff's but otherwise unremarkable. Stomach with antral nodule vs submucosal mass suggestive of possible pancreatic etiology ; biopsy obtained. Duodenum with linear ulcerations; no active bleeding. Biopsy obtained -GI consulted -Continue Protonix -Await biopsies -PPI, advance diet -Will advance to clears -Consider endoscopic US as outpatient in 2-3 mo -Avoid NSAID's/aspirin Anemia Impression: Suspect secondary to upper GI bleed. Baseline anemia of ~10.5 Hgb in 2012 Hgb 5.6 on admission-> 6.9 s/p 2 U pRBC -Will continue to monitor Hgb, signs of bleeding -Will order additional 1 U pRBC to use if needed JAZLYN Impression: Cr 2 on admission; baseline ~1.1 in 2012 -Continue IV fluid hydration -Will trend Cr -Avoid nephrotoxins Hypertension antihypertensive currently on hold due to G I bleed, will restart when stabilized. Hyperlipidemia resume home statin Diabetes mellitus, diet controlled Accu-Cheks with sliding scale insulin PT consulted DVT prophylaxis anticoagulation contraindicated secondary to active GI bleed SCD's Code Status: Full code
[2018-02-02] MEDS ORDERED: Sodium Chlor 0.9% Inj 250 ML IV.SIG SCH (11:00)
[2018-02-02 11:41] LABS: Baso % (Auto) 0.5 % (0.0-2.0); Eos # (Auto) 0.2 th/mm3 (0.0-0.4); Eos % (Auto) 2.7 % (0.0-4.0); Hematocrit 22.3 % (35.0-46.0); Hemoglobin 7.6 gm/dL (11.6-15.3); Lymph # (Auto) 2.4 th/mm3 (1.0-4.8); Lymph % (Auto) 32.5 % (9.0-44.0); Mean Corpuscular HGB Conc 34.3 % (32.0-36.0); Mean Corpuscular Hemoglobin 31.2 pg (27.0-34.0); Mean Corpuscular Volume 90.9 fL (80.0-100.0); Mean Platelet Volume 8.8 fL (7.0-11.0); Mono # (Auto) 0.6 th/mm3 (0.0-0.9); Mono % (Auto) 8.9 % (0.0-8.0); Neut % (Auto) 55.4 % (16.0-70.0); Platelet Count 160 th/mm3 (150-450); Red Blood Count 2.45 mil/mm3 (4.00-5.30); Red Cell Distribution Width 15.2 % (11.6-17.2); White Blood Count 7.3 th/mm3 (4.0-11.0)
[2018-02-02 11:54] LABS: Calcium 8.6 mg/dL (8.5-10.1); Carbon Dioxide 23.3 meq/L (21.0-32.0); Potassium 4.2 meq/L (3.5-5.1)
--- NOTE | 2018-02-02 13:51 | P.PNGI ---
Subjective Interval history: Pt is sitting up in bed, denies nausea, vomiting or abd pain, Physical Exam Vital signs: Vital Signs 02/01/18 14:41 02/01/18 14:51 02/01/18 16:41 Temperature 98.3 F 98.4 F 98.6 F Pulse Rate 74 72 63 Respiratory Rate 18 18 18 Blood Pressure 121/57 L 107/52 L 123/56 L Pulse Oximetry 98 99 02/01/18 18:35 02/01/18 18:37 02/01/18 20:00 Temperature 98.3 F 98.2 F 98 F Pulse Rate 70 64 55 L Respiratory Rate 17 17 19 Blood Pressure 109/53 L 122/59 L Pulse Oximetry 98 100 02/02/18 00:00 02/02/18 04:00 02/02/18 08:00 Temperature 98.1 F 98 F 98.0 F Pulse Rate 55 L 56 L 50 L Respiratory Rate 15 15 18 Blood Pressure 106/54 L 110/59 L 108/54 L Pulse Oximetry 100 100 100 02/02/18 12:00 Temperature 98.0 F Pulse Rate 68 Respiratory Rate 18 Blood Pressure 102/62 Pulse Oximetry 99 Intake & Output 02/01/18 02/02/18 02/02/18 18:59 06:59 18:59 Intake Total 400 / 400 1100 / 1100 100 / 100 Balance 400 / 400 1100 / 1100 100 / 100 Weight 95.254 kg 96 kg Intake: IV 150 / 150 1100 / 1100 100 / 100 D5W/1/2NS + KCL 20 mEq Inj 1, 1000 / 1000 000 ML @ 75 mls/hr IV.CONT . [id number] [facility] Rx#:[id number] Protonix Inj 80 MG In NS Inj 100 / 100 100 / 100 100 / 100 100 ML @ 10 mls/hr IV.CONT CONT [facility] Rx#:[id number] Protonix Inj 80 MG In NS Inj 50 50 / 50 ML @ 600 mls/hr IV.[facility] Rx#:[id number] Oral 0 / 0 Anesthesia Amount 250 / 250 Intake (Blood Product) Amt 0 / 0 0 / 0 Rbc As-3 Leukoreduced Unit 0 / 0 [id number] Rbc As-3 Leukoreduced Unit 0 / 0 0 / 0 [id number] Other: # Voids 5 Date of Last Bowel Movement 02/01/18 - Constitutional no acute distress - Routine HEENT Exam Head: Present: normocephalic Eye: Present: PERRL - Routine Neck Exam Present: supple - Routine Respiratory Exam Present: CTA bilaterally - Routine Cardiovascular Exam Present: RRR - Routine Abdominal Exam Present: soft, normoactive bowel sounds. Absent: tenderness, distended - Routine Skin Exam Present: intact, dry - Routine Neurological Exam Present: alert, oriented X3 Results - Labs CBC & Chem 7: 02/02/18 11:15 02/02/18 11:15 Laboratory Results - last 24 hr 02/01/18 02/01/18 02/01/18 09:30 10:46 12:30 WBC RBC Hgb Hct MCV MCH MCHC RDW Plt Count MPV Neut % (Auto) Lymph % (Auto) [place] % (Auto) Eos % (Auto) Baso % (Auto) Neut # (Auto) Lymph # (Auto) [place] # (Auto) Eos # (Auto) Baso # (Auto) WBC Differential Differential Comment Sodium Potassium Chloride Carbon Dioxide Anion Gap BUN Creatinine Estimated GFR POC Glucose Random Glucose Calcium Total Creatine Kinase 285 H CK-MB (CK-2) 4.1 H CK-MB (CK-2) % 1.4 Troponin I Less than 0.02 L Antibody Identification Non-Specific Agglutinin MTS Gel Crossmatch See Detail Bld Prod Order Comment 02/01/18 02/01/18 02/01/18 18:31 21:31 23:59 WBC RBC Hgb 6.9 L* Hct 20.4 L* MCV MCH MCHC RDW Plt Count MPV Neut % (Auto) Lymph % (Auto) [place] % (Auto) Eos % (Auto) Baso % (Auto) Neut # (Auto) Lymph # (Auto) [place] # (Auto) Eos # (Auto) Baso # (Auto) WBC Differential Differential Comment Sodium Potassium Chloride Carbon Dioxide Anion Gap BUN Creatinine Estimated GFR POC Glucose 99 113 H Random Glucose Calcium Total Creatine Kinase CK-MB (CK-2) CK-MB (CK-2) % Troponin I Antibody Identification MTS Gel Crossmatch Bld Prod Order Comment 02/02/18 02/02/18 02/02/18 08:36 10:41 11:15 WBC 7.3 RBC 2.45 L Hgb 7.6 L Hct 22.3 L MCV 90.9 MCH 31.2 MCHC 34.3 RDW 15.2 Plt Count 160 MPV 8.8 Neut % (Auto) 55.4 Lymph % (Auto) 32.5 [place] % (Auto) 8.9 H Eos % (Auto) 2.7 Baso % (Auto) 0.5 Neut # (Auto) 4.0 Lymph # (Auto) 2.4 [place] # (Auto) 0.6 Eos # (Auto) 0.2 Baso # (Auto) 0.0 WBC Differential . Differential Comment Auto diff final Sodium Potassium Chloride Carbon Dioxide Anion Gap BUN Creatinine Estimated GFR POC Glucose 129 H Random Glucose Calcium Total Creatine Kinase CK-MB (CK-2) CK-MB (CK-2) % Troponin I Antibody Identification MTS Gel Crossmatch See Detail Bld Prod Order Comment 02/02/18 02/02/18 11:15 12:09 WBC RBC Hgb Hct MCV MCH MCHC RDW Plt Count MPV Neut % (Auto) Lymph % (Auto) [place] % (Auto) Eos % (Auto) Baso % (Auto) Neut # (Auto) Lymph # (Auto) [place] # (Auto) Eos # (Auto) Baso # (Auto) WBC Differential Differential Comment Sodium 144 Potassium 4.2 Chloride 115 H Carbon Dioxide 23.3 Anion Gap 6 BUN 43 H Creatinine 1.65 H Estimated GFR 36 L POC Glucose 117 H Random Glucose 114 H Calcium 8.6 Total Creatine Kinase CK-MB (CK-2) CK-MB (CK-2) % Troponin I Antibody Identification MTS Gel Crossmatch Bld Prod Order Comment Assessment and Plan (1) History of constipation Status: Acute Code(s): Z87.19 - Personal history of other diseases of the digestive system (2) Upper gastrointestinal hemorrhage Status: Acute Code(s): K92.2 - Gastrointestinal hemorrhage, unspecified (3) Melena Status: Acute Code(s): K92.1 - Melena (4) Symptomatic anemia Status: Acute Code(s): D64.9 - Anemia, unspecified - Plan 82-year-old obese female presented to the emergency room on 02/01/2018 with the following symptoms: Symptomatic anemia. Current hemoglobin 5.6 on admission to the emergency room. No leukocytosis current WBC count 10.3. Patient takes aspirin 81 mg daily. Melena stools, 2 day onset with some watery melena stool for the last 24 hours. No previous history known Nausea and vomiting 1 after eating watermelon, 2 day onset, unaware if it is related to her anemia symptoms. Dyspnea probably related to symptomatic anemia Dizziness near syncopal episode secondary to symptomatic anemia probable Positive family history with patient's son, GI cancer, unknown what type. History of polyps, colonoscopy approximately 2 years ago and states her next colonoscopy will be due next year No previous EGD to patient's recollection. Other labs show normal bilirubin and normal LFTs. 02/02/18 Melena stools/ Symptomatic anemia S/P EGD on 02/01/18 Irregular Z line Antral nodule/submucosal mass, Duodenal ulcer Plan Full liquid diet Await bx consider EUS Protonix BID Monitor labs Bowel regimen as needed Further recommendations to follow Patient was seen per myself and Dr. Barth this note was written on his behalf.
--- NOTE | 2018-02-02 15:38 | ECG ---
Date Performed: 02/01/2018 Time Performed: 15:48:18 PTAGE: 82 years EKG: Sinus rhythm NONSPECIFIC T-WAVE ABNORMALITY Whencompared to previous tracing, the previous slight ST Elevation an teriorly is no longer present, there is now some Terminal T wave invertion in leads V3 an V4. Clinica l correlation is recommended BORDERLINE ECG PREVIOUS TRACING : 09/29/2009 12.48 DOCTOR: Felipe Mckeon Interpretating Date/Time 02/02/2018 15:37:30
[2018-02-03] MEDS: Sod Chloride 0.9% Inj 1,000 ML IV.CONT SCH ×3 (01:10→16:29)
[2018-02-03] MEDS: KCL 20 mEq/D5W/NaCl 0.45% Inj 1,000 ML IV.CONT SCH ×2 (03:36→16:26)
[2018-02-03] MEDS: Insulin NovoLOG Aspart Correctional Sugar Inj SQ SCH ×4 (07:22→20:41)
[2018-02-03 10:28] LABS: Baso % (Auto) 0.6 % (0.0-2.0); Eos # (Auto) 0.2 th/mm3 (0.0-0.4); Eos % (Auto) 2.7 % (0.0-4.0); Hematocrit 24.2 % (35.0-46.0); Hemoglobin 8.1 gm/dL (11.6-15.3); Lymph # (Auto) 3.2 th/mm3 (1.0-4.8); Lymph % (Auto) 36.5 % (9.0-44.0); Mean Corpuscular HGB Conc 33.4 % (32.0-36.0); Mean Corpuscular Hemoglobin 30.6 pg (27.0-34.0); Mean Corpuscular Volume 91.7 fL (80.0-100.0); Mean Platelet Volume 9.2 fL (7.0-11.0); Mono # (Auto) 0.7 th/mm3 (0.0-0.9); Mono % (Auto) 8.3 % (0.0-8.0); Neut # (Auto) 4.5 th/mm3 (1.8-7.7); Neut % (Auto) 51.9 % (16.0-70.0); Platelet Count 176 th/mm3 (150-450); Red Blood Count 2.64 mil/mm3 (4.00-5.30); Red Cell Distribution Width 15.2 % (11.6-17.2); White Blood Count 8.7 th/mm3 (4.0-11.0)
[2018-02-03 10:44] LABS: Calcium 8.4 mg/dL (8.5-10.1); Carbon Dioxide 19.6 meq/L (21.0-32.0); Potassium 4.1 meq/L (3.5-5.1)
--- NOTE | 2018-02-03 13:01 | P.PNGI ---
Subjective Interval history: Pt resting in bed. Denies any abdominal pain. States BM this morning, thinks it might have been black. Denies any nausea, vomiting. Complaining of some dizziness worse with position changes. <Nara Matta - Last Filed: 02/03/18 12:57> Physical Exam Vital signs: Vital Signs 02/02/18 16:00 02/02/18 17:27 02/02/18 20:00 Temperature 97.8 F 98.2 F Pulse Rate 60 51 L Respiratory Rate 17 18 Blood Pressure 122/59 L 114/55 L Pulse Oximetry 92 L 99 100 02/03/18 00:00 02/03/18 08:00 02/03/18 12:00 Temperature 98.0 F 97.8 F 98.0 F Pulse Rate 59 L 63 55 L Respiratory Rate 18 16 17 Blood Pressure 105/52 L 131/61 124/59 L Pulse Oximetry 99 100 99 Intake & Output 02/02/18 02/03/18 02/03/18 18:59 06:59 18:59 Intake Total 1180 / 1180 260 / 260 1000 / 1000 Balance 1180 / 1180 260 / 260 1000 / 1000 Intake: IV 1180 / 1180 20 / 20 1000 / 1000 D5W/1/2NS + KCL 20 mEq Inj 1, 1000 / 1000 1000 / 1000 000 ML @ 75 mls/hr IV.CONT . [id number] [facility] Rx#:[id number] Protonix Inj 80 MG In NS Inj 180 / 180 20 / 20 100 ML @ 10 mls/hr IV.CONT Q10H [facility] Rx#:[id number] Oral 240 / 240 Other: # Voids 2 Date of Last Bowel Movement 02/01/18 02/02/18 - Constitutional no acute distress - Routine HEENT Exam Head: Present: normocephalic, atraumatic - Routine Respiratory Exam Absent: accessory muscle use - Routine Abdominal Exam Present: soft, normoactive bowel sounds. Absent: tenderness - Routine Skin Exam Present: dry, warm - Routine Neurological Exam Present: alert, oriented X3 <Nara Matta - Last Filed: 02/03/18 12:57> Vital signs: Vital Signs 02/02/18 16:00 02/02/18 17:27 02/02/18 20:00 Temperature 97.8 F 98.2 F Pulse Rate 60 51 L Respiratory Rate 17 18 Blood Pressure 122/59 L 114/55 L Pulse Oximetry 92 L 99 100 02/03/18 00:00 02/03/18 08:00 02/03/18 12:00 Temperature 98.0 F 97.8 F 98.0 F Pulse Rate 59 L 63 55 L Respiratory Rate 18 16 17 Blood Pressure 105/52 L 131/61 124/59 L Pulse Oximetry 99 100 99 Intake & Output 02/02/18 02/03/18 02/03/18 18:59 06:59 18:59 Intake Total 1180 / 1180 260 / 260 1000 / 1000 Balance 1180 / 1180 260 / 260 1000 / 1000 Intake: IV 1180 / 1180 20 / 20 1000 / 1000 D5W/1/2NS + KCL 20 mEq Inj 1, 1000 / 1000 1000 / 1000 000 ML @ 75 mls/hr IV.CONT . [id number] [facility] Rx#:[id number] Protonix Inj 80 MG In NS Inj 180 / 180 20 / 20 100 ML @ 10 mls/hr IV.CONT Q10H [facility] Rx#:[id number] Oral 240 / 240 Other: # Voids 2 Date of Last Bowel Movement 02/01/18 02/02/18 <Yosvany De La O E - Last Filed: 02/03/18 13:57> Results - Labs CBC & Chem 7: 02/03/18 09:45 02/03/18 09:45 Laboratory Results - last 24 hr 02/02/18 02/02/18 02/03/18 17:32 21:12 07:17 WBC RBC Hgb Hct MCV MCH MCHC RDW Plt Count MPV Neut % (Auto) Lymph % (Auto) [place] % (Auto) Eos % (Auto) Baso % (Auto) Neut # (Auto) Lymph # (Auto) [place] # (Auto) Eos # (Auto) Baso # (Auto) WBC Differential Differential Comment Sodium Potassium Chloride Carbon Dioxide Anion Gap BUN Creatinine Estimated GFR POC Glucose 127 H 135 H 120 H Random Glucose Calcium 02/03/18 02/03/18 02/03/18 09:45 09:45 11:16 WBC 8.7 RBC 2.64 L Hgb 8.1 L Hct 24.2 L MCV 91.7 MCH 30.6 MCHC 33.4 RDW 15.2 Plt Count 176 MPV 9.2 Neut % (Auto) 51.9 Lymph % (Auto) 36.5 [place] % (Auto) 8.3 H Eos % (Auto) 2.7 Baso % (Auto) 0.6 Neut # (Auto) 4.5 Lymph # (Auto) 3.2 [place] # (Auto) 0.7 Eos # (Auto) 0.2 Baso # (Auto) 0.0 WBC Differential . Differential Comment Auto diff final Sodium 142 Potassium 4.1 Chloride 114 H Carbon Dioxide 19.6 L Anion Gap 8 BUN 25 H Creatinine 1.54 H Estimated GFR 39 L POC Glucose 113 H Random Glucose 97 Calcium 8.4 L <Nara Matta - Last Filed: 02/03/18 12:57> - Labs CBC & Chem 7: 02/03/18 09:45 02/03/18 09:45 Laboratory Results - last 24 hr 02/02/18 02/02/18 02/03/18 17:32 21:12 07:17 WBC RBC Hgb Hct MCV MCH MCHC RDW Plt Count MPV Neut % (Auto) Lymph % (Auto) [place] % (Auto) Eos % (Auto) Baso % (Auto) Neut # (Auto) Lymph # (Auto) [place] # (Auto) Eos # (Auto) Baso # (Auto) WBC Differential Differential Comment Sodium Potassium Chloride Carbon Dioxide Anion Gap BUN Creatinine Estimated GFR POC Glucose 127 H 135 H 120 H Random Glucose Calcium 02/03/18 02/03/18 02/03/18 09:45 09:45 11:16 WBC 8.7 RBC 2.64 L Hgb 8.1 L Hct 24.2 L MCV 91.7 MCH 30.6 MCHC 33.4 RDW 15.2 Plt Count 176 MPV 9.2 Neut % (Auto) 51.9 Lymph % (Auto) 36.5 [place] % (Auto) 8.3 H Eos % (Auto) 2.7 Baso % (Auto) 0.6 Neut # (Auto) 4.5 Lymph # (Auto) 3.2 [place] # (Auto) 0.7 Eos # (Auto) 0.2 Baso # (Auto) 0.0 WBC Differential . Differential Comment Auto diff final Sodium 142 Potassium 4.1 Chloride 114 H Carbon Dioxide 19.6 L Anion Gap 8 BUN 25 H Creatinine 1.54 H Estimated GFR 39 L POC Glucose 113 H Random Glucose 97 Calcium 8.4 L <Yosvany De La O - Last Filed: 02/03/18 13:57> Assessment and Plan (1) History of constipation Status: Acute Code(s): Z87.19 - Personal history of other diseases of the digestive system (2) Upper gastrointestinal hemorrhage Status: Acute Code(s): K92.2 - Gastrointestinal hemorrhage, unspecified (3) Melena Status: Acute Code(s): K92.1 - Melena (4) Symptomatic anemia Status: Acute Code(s): D64.9 - Anemia, unspecified - Plan 82-year-old obese female presented to the emergency room on 02/01/2018 with the following symptoms: Symptomatic anemia. Current hemoglobin 5.6 on admission to the emergency room. No leukocytosis current WBC count 10.3. Patient takes aspirin 81 mg daily. Melena stools, 2 day onset with some watery melena stool for the last 24 hours. No previous history known Nausea and vomiting 1 after eating watermelon, 2 day onset, unaware if it is related to her anemia symptoms. Dyspnea probably related to symptomatic anemia Dizziness near syncopal episode secondary to symptomatic anemia probable Positive family history with patient's son, GI cancer, unknown what type. History of polyps, colonoscopy approximately 2 years ago and states her next colonoscopy will be due next year No previous EGD to patient's recollection. Other labs show normal bilirubin and normal LFTs. EGD (02/01) Irregular Z line, antral nodule/submucosal mas, duodenal ulcer. (02/03) Pt thinks she may have had a black stool this morning. Denies nausea, vomiting, abdominal pain. H/H remains stable overnight. Plan Advance diet Consider EUS if antral nodule biopsy negative Avoid NSAIDs and ASA Continue Protonix GI will sign off, pt to follow up in office in 1 week for biopsy results Patient has been seen and examined by myself and Dr. De La O and this note is written on his behalf <Nara Matta - Last Filed: 02/03/18 12:57> (1) History of constipation Status: Acute Code(s): Z87.19 - Personal history of other diseases of the digestive system (2) Upper gastrointestinal hemorrhage Status: Acute Code(s): K92.2 - Gastrointestinal hemorrhage, unspecified (3) Melena Status: Acute Code(s): K92.1 - Melena (4) Symptomatic anemia Status: Acute Code(s): D64.9 - Anemia, unspecified - Attending Attestation Patient seen and examined Agree with above Continue with current supportive care Monitor labs Not much to add at this point from a GI perspective we will sign off <Yosvany De La O E - Last Filed: 02/03/18 13:57>
--- NOTE | 2018-02-03 14:29 | P.PNIM ---
Subjective Interval history: Mrs. Maharaj has been afebrile with stable VS overnight. Patient reports that she has not had any abdominal pain but had some gas. Patient had a "huizar" looking BM this morning which may have had blood and a normal looking BM around lunch. Patient eating well. Patient urinating frequently. No respiratory concerns. Physical Exam Vital signs: Vital Signs 02/02/18 16:00 02/02/18 17:27 02/02/18 20:00 Temperature 97.8 F 98.2 F Pulse Rate 60 51 L Respiratory Rate 17 18 Blood Pressure 122/59 L 114/55 L Pulse Oximetry 92 L 99 100 02/03/18 00:00 02/03/18 08:00 02/03/18 12:00 Temperature 98.0 F 97.8 F 98.0 F Pulse Rate 59 L 63 55 L Respiratory Rate 18 16 17 Blood Pressure 105/52 L 131/61 124/59 L Pulse Oximetry 99 100 99 Intake & Output 02/02/18 02/03/18 02/03/18 18:59 06:59 18:59 Intake Total 1180 / 1180 260 / 260 1000 / 1000 Balance 1180 / 1180 260 / 260 1000 / 1000 Intake: IV 1180 / 1180 20 / 20 1000 / 1000 D5W/1/2NS + KCL 20 mEq Inj 1, 1000 / 1000 1000 / 1000 000 ML @ 75 mls/hr IV.CONT . [id number] [facility] Rx#:[id number] Protonix Inj 80 MG In NS Inj 180 / 180 20 / 20 100 ML @ 10 mls/hr IV.CONT Q10H [facility] Rx#:[id number] Oral 240 / 240 Other: # Voids 2 Date of Last Bowel Movement 02/01/18 02/02/18 Narrative: GENERAL: NAD SKIN: Warm and dry; no lesions EYES: EOM grossly I CARDIOVASCULAR: Regular rate and rhythm. Normal perfusion RESPIRATORY: CTAB; normal rate GASTROINTESTINAL: Abdomen soft, non-tender, nondistended MUSCULOSKELETAL: Grossly normal ROM and strength NEUROLOGICAL: Grossly normal CN; grossly normal peripheral motor/sensory function PSYCHIATRIC: Appropriate mood and affect; insight and judgment normal. Results - Labs CBC & Chem 7: 02/03/18 09:45 02/03/18 09:45 Laboratory Results - last 24 hr 02/02/18 02/02/18 02/03/18 17:32 21:12 07:17 WBC RBC Hgb Hct MCV MCH MCHC RDW Plt Count MPV Neut % (Auto) Lymph % (Auto) [place] % (Auto) Eos % (Auto) Baso % (Auto) Neut # (Auto) Lymph # (Auto) [place] # (Auto) Eos # (Auto) Baso # (Auto) WBC Differential Differential Comment Sodium Potassium Chloride Carbon Dioxide Anion Gap BUN Creatinine Estimated GFR POC Glucose 127 H 135 H 120 H Random Glucose Calcium 02/03/18 02/03/18 02/03/18 09:45 09:45 11:16 WBC 8.7 RBC 2.64 L Hgb 8.1 L Hct 24.2 L MCV 91.7 MCH 30.6 MCHC 33.4 RDW 15.2 Plt Count 176 MPV 9.2 Neut % (Auto) 51.9 Lymph % (Auto) 36.5 [place] % (Auto) 8.3 H Eos % (Auto) 2.7 Baso % (Auto) 0.6 Neut # (Auto) 4.5 Lymph # (Auto) 3.2 [place] # (Auto) 0.7 Eos # (Auto) 0.2 Baso # (Auto) 0.0 WBC Differential . Differential Comment Auto diff final Sodium 142 Potassium 4.1 Chloride 114 H Carbon Dioxide 19.6 L Anion Gap 8 BUN 25 H Creatinine 1.54 H Estimated GFR 39 L POC Glucose 113 H Random Glucose 97 Calcium 8.4 L Assessment and Plan - Plan 82-year-old female with a history of hypertension hyperlipidemia on aspirin 81 mg p.o. daily presents with 2 day history of black tarry stools Upper GI bleed Impression: 2 day history of melena. EGD 02/01- esophagus with possible Goff's but otherwise unremarkable. Stomach with antral nodule vs submucosal mass suggestive of possible pancreatic etiology ; biopsy obtained. Duodenum with linear ulcerations; no active bleeding. Biopsy obtained -GI consulted -Continue Protonix -Await biopsies; consider EUS if antral biopsy negative -PPI -Consider endoscopic US as outpatient in 2-3 mo -Avoid NSAID's/aspirin -Advance to regular diet Anemia Impression: Suspect secondary to upper GI bleed. Baseline anemia of ~10.5 Hgb in 2012 Hgb 5.6 on admission-> 6.9 s/p 2 U pRBC -> 8.1 (02/03) -Will continue to monitor Hgb, signs of bleeding -Transfuse if needed JAZLYN Impression: Cr 2 on admission; baseline ~1.1 in 2013. Cr improved to 1.54 today -Continue IV fluid hydration -Will trend Cr -Avoid nephrotoxins Hypertension Impression: PMH HTN. Normotensive currently -Will monitor Hyperlipidemia Continue home statin Diabetes mellitus, diet controlled Accu-Cheks with sliding scale insulin PT consulted DVT prophylaxis anticoagulation contraindicated secondary to active GI bleed SCD's Code Status: Full Discharge Planning: Pending antral biopsy results/GI recommendations
[2018-02-04] MEDS: Sod Chloride 0.9% Inj 1,000 ML IV.CONT SCH ×3 (01:09→17:17)
[2018-02-04] MEDS: KCL 20 mEq/D5W/NaCl 0.45% Inj 1,000 ML IV.CONT SCH ×2 (06:10→21:40)
[2018-02-04] MEDS: Insulin NovoLOG Aspart Correctional Sugar Inj SQ SCH ×4 (07:51→21:42)
[2018-02-04 09:50] LABS: Calcium 8.7 mg/dL (8.5-10.1); Potassium 4.8 meq/L (3.5-5.1)
[2018-02-04 10:00] LABS: Baso % (Auto) 0.4 % (0.0-2.0); Eos # (Auto) 0.3 th/mm3 (0.0-0.4); Eos % (Auto) 2.8 % (0.0-4.0); Hemoglobin 8.1 gm/dL (11.6-15.3); Lymph # (Auto) 3.1 th/mm3 (1.0-4.8); Lymph % (Auto) 34.2 % (9.0-44.0); Mean Corpuscular HGB Conc 33.6 % (32.0-36.0); Mean Corpuscular Volume 92.2 fL (80.0-100.0); Mean Platelet Volume 9.2 fL (7.0-11.0); Mono # (Auto) 0.9 th/mm3 (0.0-0.9); Mono % (Auto) 9.8 % (0.0-8.0); Neut # (Auto) 4.8 th/mm3 (1.8-7.7); Neut % (Auto) 52.8 % (16.0-70.0); Platelet Count 209 th/mm3 (150-450); Red Blood Count 2.61 mil/mm3 (4.00-5.30); Red Cell Distribution Width 15.1 % (11.6-17.2)
--- NOTE | 2018-02-04 14:14 | P.PNIM ---
Subjective Interval history: Mrs. Maharaj was afebrile with stable vital signs overnight. Patient reports that she is doing well and is hungry for dinner. Patient states her stools were slightly dark but not obviously suggestive of blood or "like before." Patient does not report chest pain, shortness of breath, abdominal pain, or urinary/ bowel problems. She has been ambulating well. Physical Exam Vital signs: Vital Signs 02/03/18 18:00 02/03/18 18:29 02/03/18 20:00 Temperature 98.0 F 98.4 F Pulse Rate 51 L 58 L Respiratory Rate 17 20 Blood Pressure 117/68 110/56 L Pulse Oximetry 96 96 96 02/04/18 00:00 02/04/18 08:00 02/04/18 12:00 Temperature 98.5 F 97.8 F 98.0 F Pulse Rate 81 59 L 98 H Respiratory Rate 18 18 18 Blood Pressure 136/62 138/65 131/60 Pulse Oximetry 100 99 96 Intake & Output 02/03/18 02/04/18 02/04/18 18:59 06:59 18:59 Intake Total 1000 / 1000 1959 Balance 1000 / 1000 1959 Intake: IV 1000 / 1000 1000 / 1000 D5W/1/2NS + KCL 20 mEq Inj 1, 1000 / 1000 1000 / 1000 000 ML @ 75 mls/hr IV.CONT . [id number] [facility] Rx#:[id number] Oral 960 / 960 Other: # Voids 3 Date of Last Bowel Movement 02/02/18 Narrative: GENERAL: NAD SKIN: Warm and dry; no lesions EYES: EOM grossly I CARDIOVASCULAR: Regular rate and rhythm. Normal perfusion RESPIRATORY: CTAB; normal rate GASTROINTESTINAL: Abdomen soft, non-tender, nondistended MUSCULOSKELETAL: Grossly normal ROM and strength NEUROLOGICAL: Grossly normal CN; grossly normal peripheral motor/sensory function PSYCHIATRIC: Appropriate mood and affect; insight and judgment normal. Results - Labs CBC & Chem 7: 02/04/18 08:36 02/04/18 08:36 Laboratory Results - last 24 hr 02/02/18 02/03/18 02/03/18 10:41 16:07 19:37 WBC RBC Hgb Hct MCV MCH MCHC RDW Plt Count MPV Neut % (Auto) Lymph % (Auto) [place] % (Auto) Eos % (Auto) Baso % (Auto) Neut # (Auto) Lymph # (Auto) [place] # (Auto) Eos # (Auto) Baso # (Auto) WBC Differential Differential Comment Sodium Potassium Chloride Carbon Dioxide Anion Gap BUN Creatinine Estimated GFR POC Glucose 91 99 Random Glucose Calcium MTS Gel Crossmatch See Detail 02/04/18 02/04/18 02/04/18 07:27 08:36 08:36 WBC 9.0 RBC 2.61 L Hgb 8.1 L Hct 24.0 L MCV 92.2 MCH 31.0 MCHC 33.6 RDW 15.1 Plt Count 209 MPV 9.2 Neut % (Auto) 52.8 Lymph % (Auto) 34.2 [place] % (Auto) 9.8 H Eos % (Auto) 2.8 Baso % (Auto) 0.4 Neut # (Auto) 4.8 Lymph # (Auto) 3.1 [place] # (Auto) 0.9 Eos # (Auto) 0.3 Baso # (Auto) 0.0 WBC Differential . Differential Comment Auto diff final Sodium 142 Potassium 4.8 Chloride 113 H Carbon Dioxide 22.0 Anion Gap 7 BUN 16 Creatinine 1.42 H Estimated GFR 43 L POC Glucose 109 Random Glucose 115 H Calcium 8.7 MTS Gel Crossmatch 02/04/18 11:20 WBC RBC Hgb Hct MCV MCH MCHC RDW Plt Count MPV Neut % (Auto) Lymph % (Auto) [place] % (Auto) Eos % (Auto) Baso % (Auto) Neut # (Auto) Lymph # (Auto) [place] # (Auto) Eos # (Auto) Baso # (Auto) WBC Differential Differential Comment Sodium Potassium Chloride Carbon Dioxide Anion Gap BUN Creatinine Estimated GFR POC Glucose 101 Random Glucose Calcium MTS Gel Crossmatch Assessment and Plan - Plan 82-year-old female with a history of hypertension hyperlipidemia on aspirin 81 mg p.o. daily presents with 2 day history of black tarry stools Upper GI bleed Impression: 2 day history of melena. EGD 02/01- esophagus with possible Goff's but otherwise unremarkable. Stomach with antral nodule vs submucosal mass suggestive of possible pancreatic etiology ; biopsy obtained. Duodenum with linear ulcerations; no active bleeding. Biopsy obtained -GI consulted -Continue Protonix -Await biopsies; consider EUS if antral biopsy negative -PPI -Consider endoscopic US as outpatient in 2-3 mo -Avoid NSAID's/aspirin -Advance to regular diet Anemia Impression: Suspect secondary to upper GI bleed. Baseline anemia of ~10.5 Hgb in 2013 Hgb 5.6 on admission-> 6.9 s/p 2 U pRBC - has since been stable -Will continue to monitor Hgb, signs of bleeding -Transfuse if needed JAZLYN Impression: Cr 2 on admission; baseline ~1.1 in 2012. Cr improved to 1.42 today -Continue IV fluid hydration -Will trend Cr -Avoid nephrotoxins Hypertension Impression: PMH HTN. Normotensive currently -Will monitor Hyperlipidemia Continue home statin Diabetes mellitus, diet controlled Accu-Cheks with sliding scale insulin PT consulted DVT prophylaxis anticoagulation contraindicated secondary to active GI bleed SCD's Code Status: Full Discharge Planning: Pending antral biopsy results/GI recommendations
[2018-02-05] MEDS: Sod Chloride 0.9% Inj 1,000 ML IV.CONT SCH ×3 (00:29→16:55)
[2018-02-05] MEDS: Insulin NovoLOG Aspart Correctional Sugar Inj SQ SCH ×4 (08:06→21:30)
[2018-02-05 09:10] LABS: Baso % (Auto) 0.6 % (0.0-2.0); Eos # (Auto) 0.2 th/mm3 (0.0-0.4); Hematocrit 21.8 % (35.0-46.0); Hemoglobin 7.3 gm/dL (11.6-15.3); Lymph # (Auto) 1.7 th/mm3 (1.0-4.8); Lymph % (Auto) 27.6 % (9.0-44.0); Mean Corpuscular HGB Conc 33.5 % (32.0-36.0); Mean Corpuscular Hemoglobin 30.4 pg (27.0-34.0); Mean Corpuscular Volume 90.9 fL (80.0-100.0); Mean Platelet Volume 8.8 fL (7.0-11.0); Mono # (Auto) 0.6 th/mm3 (0.0-0.9); Mono % (Auto) 10.3 % (0.0-8.0); Neut # (Auto) 3.5 th/mm3 (1.8-7.7); Neut % (Auto) 58.5 % (16.0-70.0); Platelet Count 207 th/mm3 (150-450); Red Cell Distribution Width 15.3 % (11.6-17.2)
[2018-02-05 09:41] LABS: Albumin 2.9 g/dL (3.4-5.0); Anion Gap 9 meq/L (5-15); Aspartate Aminotransferase 16 U/L (15-37); Blood Urea Nitrogen 13 mg/dL (7-18); Calcium 8.6 mg/dL (8.5-10.1); Carbon Dioxide 22.4 meq/L (21.0-32.0); Chloride 112 meq/L (98-107); Glomerular Filtration Rate 41 mL/min (>89); Glucose,Random 99 mg/dL (74-106); Potassium 4.3 meq/L (3.5-5.1); Sodium 143 meq/L (136-145)
[2018-02-05 09:42] LABS: Alanine Aminotransferase 18 U/L (10-53)
[2018-02-05 09:44] LABS: Alkaline Phosphatase 65 U/L (45-117); Total Protein 6.3 g/dL (6.4-8.2)
[2018-02-05] MEDS: KCL 20 mEq/D5W/NaCl 0.45% Inj 1,000 ML IV.CONT SCH (10:55)
--- NOTE | 2018-02-05 13:48 | P.PNIM ---
Subjective Interval history: Mrs. Maharaj had isolated T 100.3F overnight; otherwise afebrile with stable VS. Patient denies any bowel movements today; she thought she had a dark bowel movement yesterday. Patient does not report abdominal pain, shortness of breath or other concerns. Patient has been urinating a lot; she thinks this may be from IV fluids. No pain with urination Physical Exam Vital signs: Vital Signs 02/04/18 16:00 02/04/18 20:00 02/05/18 00:00 Temperature 98.6 F 99.3 F 100.3 F H Pulse Rate 60 75 70 Respiratory Rate 18 18 18 Blood Pressure 137/60 157/70 H 135/64 Pulse Oximetry 99 100 99 02/05/18 08:00 02/05/18 12:00 Temperature 98.5 F 98.6 F Pulse Rate 60 73 Respiratory Rate 17 17 Blood Pressure 119/59 L 135/61 Pulse Oximetry 99 100 Intake & Output 02/04/18 02/05/18 02/05/18 18:59 06:59 18:59 Intake Total 1640 / 1640 1000 / 1000 1000 / 1000 Balance 1640 / 1640 1000 / 1000 1000 / 1000 Intake: IV 1000 / 1000 1000 / 1000 1000 / 1000 D5W/1/2NS + KCL 20 mEq Inj 1, 1000 / 1000 1000 / 1000 000 ML @ 75 mls/hr IV.CONT . [id number] ROSE Rx#:[id number] NS Inj 1,000 ML @ 125 mls/hr IV 1000 / 1000 0 / 0 .CONT .Q8H ROSE Rx#:[id number] Oral 640 / 640 Other: # Voids 4 3 2 Date of Last Bowel Movement 02/04/18 # Bowel Movements 0 Narrative: GENERAL: NAD SKIN: Warm and dry; no lesions EYES: EOM grossly I CARDIOVASCULAR: Regular rate and rhythm. Normal perfusion RESPIRATORY: CTAB; normal rate GASTROINTESTINAL: Abdomen soft, non-tender, nondistended MUSCULOSKELETAL: Grossly normal ROM and strength NEUROLOGICAL: Grossly normal CN; grossly normal peripheral motor/sensory function Results - Labs CBC & Chem 7: 02/05/18 08:04 02/05/18 08:04 Laboratory Results - last 24 hr 02/04/18 02/04/18 02/05/18 16:11 21:38 07:23 WBC RBC Hgb Hct MCV MCH MCHC RDW Plt Count MPV Neut % (Auto) Lymph % (Auto) [place] % (Auto) Eos % (Auto) Baso % (Auto) Neut # (Auto) Lymph # (Auto) [place] # (Auto) Eos # (Auto) Baso # (Auto) WBC Differential Differential Comment Sodium Potassium Chloride Carbon Dioxide Anion Gap BUN Creatinine Estimated GFR POC Glucose 83 108 126 H Random Glucose Calcium Total Bilirubin AST ALT Alkaline Phosphatase Total Protein Albumin 02/05/18 02/05/18 02/05/18 08:04 08:04 11:35 WBC 6.0 RBC 2.40 L Hgb 7.3 L Hct 21.8 L MCV 90.9 MCH 30.4 MCHC 33.5 RDW 15.3 Plt Count 207 MPV 8.8 Neut % (Auto) 58.5 Lymph % (Auto) 27.6 Bowman % (Auto) 10.3 H Eos % (Auto) 3.0 Baso % (Auto) 0.6 Neut # (Auto) 3.5 Lymph # (Auto) 1.7 Bowman # (Auto) 0.6 Eos # (Auto) 0.2 Baso # (Auto) 0.0 WBC Differential . Differential Comment Auto diff final Sodium 143 Potassium 4.3 Chloride 112 H Carbon Dioxide 22.4 Anion Gap 9 BUN 13 Creatinine 1.48 H Estimated GFR 41 L POC Glucose 113 H Random Glucose 99 Calcium 8.6 Total Bilirubin 0.6 AST 16 ALT 18 Alkaline Phosphatase 65 Total Protein 6.3 L D Albumin 2.9 L Assessment and Plan - Plan 82-year-old female with a history of hypertension hyperlipidemia on aspirin 81 mg p.o. daily presents with 2 day history of black tarry stools Upper GI bleed Impression: 2 day history of melena. EGD 02/01- esophagus with possible Goff's but otherwise unremarkable. Stomach with antral nodule vs submucosal mass suggestive of possible pancreatic etiology ; biopsy obtained. Duodenum with linear ulcerations; no active bleeding. Biopsy obtained -GI consulted -Continue Protonix -GI f/u for biopsies; consider EUS if antral biopsy negative -Consider endoscopic US as outpatient in 2-3 mo -Avoid NSAID's/aspirin -Continue regular diet Anemia Impression: Suspect secondary to upper GI bleed. Baseline anemia of ~10.5 Hgb in 2012 Hgb 5.6 on admission-> 6.9 s/p 2 U pRBC - 8.1-> 7.3 -Will continue to monitor Hgb, signs of bleeding -Transfuse if needed JAZLYN Impression: Cr 2 on admission; baseline ~1.1 in 2013. Cr 1.48 today -Continue IV fluid hydration -Will trend Cr -Avoid nephrotoxins Hypertension Impression: PMH HTN. Normotensive currently -Will monitor Isolated fever Impression: T100.3F last night; otherwise afebrile. Suspect atelectasis currently -Will check UA since urinating frequently Hyperlipidemia Continue home statin Diabetes mellitus, diet controlled Accu-Cheks with sliding scale insulin PT consulted DVT prophylaxis anticoagulation contraindicated secondary to active GI bleed SCD's Code Status: Full code Discharge Planning: Stable for discharge per GI; has Hgb 7.3 today. Will assure stability prior to discharge
[2018-02-05] MEDS: Ferrous Sulfate 325 MG Tablet PO SCH ×2 (13:49→21:30)
[2018-02-05 14:58] LABS: Bacteria,Urine Rare /hpf; Bilirubin,Urine Negative (Negative); Clarity,Urine Hazy (Clear); Color,Urine Yellow (Yellw/Straw); Glucose,Urine (UA) Negative (Negative); Leukocyte Esterase,Urine Large (Negative); Mucus,Urine Few /lpf (Occasional); Nitrite,Urine Negative (Negative); Specific Gravity,Urine 1.006 (1.002-1.035); Squamous Epithelial Cell,Urine 5 /hpf (0-5)
[2018-02-05 18:22] LABS: Baso % (Auto) 0.6 % (0.0-2.0); Eos # (Auto) 0.2 th/mm3 (0.0-0.4); Eos % (Auto) 3.7 % (0.0-4.0); Hematocrit 22.3 % (35.0-46.0); Hemoglobin 7.4 gm/dL (11.6-15.3); Lymph # (Auto) 1.7 th/mm3 (1.0-4.8); Lymph % (Auto) 31.9 % (9.0-44.0); Mean Corpuscular HGB Conc 33.4 % (32.0-36.0); Mean Corpuscular Hemoglobin 31.1 pg (27.0-34.0); Mean Corpuscular Volume 93.1 fL (80.0-100.0); Mean Platelet Volume 8.9 fL (7.0-11.0); Mono # (Auto) 0.8 th/mm3 (0.0-0.9); Mono % (Auto) 15.9 % (0.0-8.0); Neut # (Auto) 2.5 th/mm3 (1.8-7.7); Neut % (Auto) 47.9 % (16.0-70.0); Platelet Count 205 th/mm3 (150-450); Red Blood Count 2.39 mil/mm3 (4.00-5.30); Red Cell Distribution Width 14.9 % (11.6-17.2); White Blood Count 5.2 th/mm3 (4.0-11.0)
[2018-02-06] MEDS: KCL 20 mEq/D5W/NaCl 0.45% Inj 1,000 ML IV.CONT SCH ×2 (01:34→12:30)
[2018-02-06] MEDS: Sod Chloride 0.9% Inj 1,000 ML IV.CONT SCH ×2 (01:35→12:29)
[2018-02-06] MEDS: Insulin NovoLOG Aspart Correctional Sugar Inj SQ SCH ×3 (08:09→16:26)
[2018-02-06] MEDS: Ferrous Sulfate 325 MG Tablet PO SCH (08:11)
--- NOTE | 2018-02-06 10:05 | P.PNIM ---
Subjective Interval history: Mrs. Maharaj was afebrile with intermittent HTN overnight. Patient reports 1 BM last night; she does not report visible blood in stool. She has normal appetite this morning. Patient thinks that urination is improved since starting Rocephin last night. No shortness of breath or other concerns. Physical Exam Vital signs: Vital Signs 02/05/18 12:00 02/05/18 16:00 02/05/18 20:00 Temperature 98.6 F 98.8 F 98.4 F Pulse Rate 73 66 85 Respiratory Rate 17 18 18 Blood Pressure 135/61 127/58 L 169/73 H Pulse Oximetry 100 100 99 02/06/18 00:00 02/06/18 08:00 Temperature 98.8 F 98.3 F Pulse Rate 66 61 Respiratory Rate 18 18 Blood Pressure 137/61 109/59 L Pulse Oximetry 100 98 Intake & Output 02/05/18 02/06/18 02/06/18 18:59 06:59 18:59 Intake Total 1600 / 1600 1100 / 1100 Balance 1600 / 1600 1100 / 1100 Intake: IV 1000 / 1000 1100 / 1100 D5W/1/2NS + KCL 20 mEq Inj 1, 1000 / 1000 1000 / 1000 000 ML @ 75 mls/hr IV.CONT . [id number] RO[facility] Rx#:[id number] NS Inj 1,000 ML @ 125 mls/hr IV 0 / 0 .CONT .Q8H ROSE Rx#:[id number] Rocephin Inj 1,000 MG In NS Inj 100 / 100 100 ML @ 200 mls/hr IV.SIG Q24H ROSE Rx#:[id number] Oral 600 / 600 Other: # Voids 5 2 Date of Last Bowel Movement 02/04/18 # Bowel Movements 2 Narrative: GENERAL: NAD SKIN: Warm and dry; no lesions EYES: EOM grossly I CARDIOVASCULAR: Regular rate and rhythm. Normal perfusion RESPIRATORY: CTAB; normal rate GASTROINTESTINAL: Abdomen soft, non-tender, nondistended MUSCULOSKELETAL: Grossly normal ROM and strength. Patient ambulating well NEUROLOGICAL: Grossly normal CN; grossly normal peripheral motor/sensory function Results - Labs CBC & Chem 7: 02/05/18 17:32 02/05/18 08:04 Laboratory Results - last 24 hr 02/01/18 02/05/18 02/05/18 12:30 11:35 14:20 WBC RBC Hgb Hct MCV MCH MCHC RDW Plt Count MPV Neut % (Auto) Lymph % (Auto) [place]hing % (Auto) Eos % (Auto) Baso % (Auto) Neut # (Auto) Lymph # (Auto) [place] # (Auto) Eos # (Auto) Baso # (Auto) WBC Differential Differential Comment POC Glucose 113 H Urine Color Yellow Urine Clarity Hazy H Urine pH 5.0 Ur Specific [place] 1.006 Urine Protein Negative Urine Glucose (UA) Negative Urine Ketones Negative Urine Occult Blood Small H Urine Nitrate Negative Urine Bilirubin Negative Urine Urobilinogen Less than 2 Ur Leukocyte Esterase Large H Urine RBC 8 H Urine WBC 24 H Ur Squamous Epith Cells 5 Urine Bacteria Rare H Urine Mucus Few H Rout Panel Path Interp 02/05/18 02/05/18 02/05/18 16:54 17:32 22:16 WBC 5.2 RBC 2.39 L Hgb 7.4 L Hct 22.3 L MCV 93.1 MCH 31.1 MCHC 33.4 RDW 14.9 Plt Count 205 MPV 8.9 Neut % (Auto) 47.9 Lymph % (Auto) 31.9 [place]hing % (Auto) 15.9 H Eos % (Auto) 3.7 Baso % (Auto) 0.6 Neut # (Auto) 2.5 Lymph # (Auto) 1.7 [place]hing # (Auto) 0.8 Eos # (Auto) 0.2 Baso # (Auto) 0.0 WBC Differential . Differential Comment Auto diff final POC Glucose 104 106 Urine Color Urine Clarity Urine pH Ur Specific [place] Urine Protein Urine Glucose (UA) Urine Ketones Urine Occult Blood Urine Nitrate Urine Bilirubin Urine Urobilinogen Ur Leukocyte Esterase Urine RBC Urine WBC Ur Squamous Epith Cells Urine Bacteria Urine Mucus Rout Panel Path Interp 02/06/18 07:53 WBC RBC Hgb Hct MCV MCH MCHC RDW Plt Count MPV Neut % (Auto) Lymph % (Auto) [place] % (Auto) Eos % (Auto) Baso % (Auto) Neut # (Auto) Lymph # (Auto) [place]hing # (Auto) Eos # (Auto) Baso # (Auto) WBC Differential Differential Comment POC Glucose 114 H Urine Color Urine Clarity Urine pH Ur Specific [place] Urine Protein Urine Glucose (UA) Urine Ketones Urine Occult Blood Urine Nitrate Urine Bilirubin Urine Urobilinogen Ur Leukocyte Esterase Urine RBC Urine WBC Ur Squamous Epith Cells Urine Bacteria Urine Mucus Rout Panel Path Interp Assessment and Plan - Plan 82-year-old female with a history of hypertension hyperlipidemia on aspirin 81 mg p.o. daily presents with 2 day history of black tarry stools Upper GI bleed Impression: 2 day history of melena. EGD 02/01- esophagus with possible Goff's but otherwise unremarkable. Stomach with antral nodule vs submucosal mass suggestive of possible pancreatic etiology ; biopsy obtained. Duodenum with linear ulcerations; no active bleeding. Biopsy obtained -GI consulted -Continue Protonix -GI f/u for biopsies; consider EUS if antral biopsy negative -Consider endoscopic US as outpatient in 2-3 mo -Avoid NSAID's/aspirin -Continue regular diet Anemia Impression: Suspect secondary to upper GI bleed. Baseline anemia of ~10.5 Hgb in 2012 Hgb 5.6 on admission-> 6.9 s/p 2 U pRBC - 8.1-> 7.3 -Will continue to monitor Hgb, signs of bleeding -Transfuse if needed -If Hgb <8 today but stable, will give 1 additional pRBC before discharge JAZLYN Impression: Cr 2 on admission; baseline ~1.1 in 2012. Cr 1.48 02/06 -Continue IV fluid hydration -Will trend Cr -Avoid nephrotoxins Hypertension Impression: PMH HTN. Normotensive currently -Will monitor UTI Impression: T100.3F overnight 02/04; otherwise afebrile. Some urinary urgency UA 02/05- large leuk esterase, 24 WBC -Culture pending -Continue IV Rocephin Hyperlipidemia Continue home statin Diabetes mellitus, diet controlled Accu-Cheks with sliding scale insulin PT consulted DVT prophylaxis anticoagulation contraindicated secondary to active GI bleed SCD's Code Status: Full code Discharge Planning: Stable for discharge per GI; has Hgb 7.4 02/05. Will assess stability and give 1 additional U pRBC before discharge if <8
[2018-02-06 11:57] LABS: Baso % (Auto) 0.6 % (0.0-2.0); Eos # (Auto) 0.2 th/mm3 (0.0-0.4); Eos % (Auto) 3.4 % (0.0-4.0); Hematocrit 23.2 % (35.0-46.0); Hemoglobin 7.7 gm/dL (11.6-15.3); Lymph # (Auto) 2.3 th/mm3 (1.0-4.8); Lymph % (Auto) 35.3 % (9.0-44.0); Mean Corpuscular HGB Conc 33.3 % (32.0-36.0); Mean Corpuscular Hemoglobin 30.7 pg (27.0-34.0); Mean Corpuscular Volume 92.1 fL (80.0-100.0); Mean Platelet Volume 8.5 fL (7.0-11.0); Mono % (Auto) 14.8 % (0.0-8.0); Neut % (Auto) 45.9 % (16.0-70.0); Platelet Count 232 th/mm3 (150-450); Red Blood Count 2.52 mil/mm3 (4.00-5.30); Red Cell Distribution Width 15.3 % (11.6-17.2); White Blood Count 6.5 th/mm3 (4.0-11.0)
[2018-02-06 12:59] LABS: Calcium 8.6 mg/dL (8.5-10.1); Carbon Dioxide 25.8 meq/L (21.0-32.0); Potassium 4.6 meq/L (3.5-5.1)
[2018-02-06] MEDS ORDERED: Sodium Chlor 0.9% Inj 250 ML IV.SIG SCH (13:00)
[2018-02-06 16:23] VITALS: RESP 17; O2SAT 95
[2018-02-06 20:00] VITALS: BP 162/71; PULSE 78; TEMP 98.2
--- NOTE | 2018-02-10 14:47 | P.DS ---
Date of admission: 02/01/18 12:00 Primary care physician: Britany Xavier Attending physician on discharge: Yo Sorensen Anticipated date of discharge: 02/06/18 Brief History from admission: 82-year-old female with a history of hypertension hyperlipidemia, borderline diabetes mellitus type 2 presents to emergency room with a 2 day history of having black tarry stools and symptoms of increased fatigue and mild shortness of breath at rest. she denies any bloody stools. She reports her stools has been more loose than normal but did not have any diarrhea. She denies any unusual oral food intake over the past week. She does take aspirin on a daily basis and does not take any [id number] NSAIDs. She denies any significant abdominal pain associated with the symptoms. She denies any symptoms of dysuria or frequency urgency. DS: Diagnosis - Discharge Diagnosis (1) Symptomatic anemia Status: Acute (2) Upper gastrointestinal hemorrhage Status: Acute DS: Medications - Discharge Medications Prescriptions: ferrous sulfate [FeroSul] 325 mg PO BID #60 tab pantoprazole 40 mg PO BID #60 tab DS: Summary Hospital Course: Ms. Maharaj is a 82 yo F with PMH HTN and hyperlipidemia who presented to [place] ED 02/01 with black stools and increased fatigue and shortness of breath. On admission, patient had stable vital signs. Initial lab studies were demonstrative of anemia and JAZLYN with Hgb 5.6/Hct 16.6 and Cr 2.01. Patient was transfused 2 U pRBC, placed on IV Protonix. Patient underwent EGD 02/01 which showed an esophagus with possible Goff's, stomach with antral nodule vs submucosal mass suggestive of possible pancreatic etiology, and duodenum with linear ulcerations. No active bleeding found; biopsies obtained. Patient's GI bleeding ceased during hospitalization. She was transfused an additional 1 U pRBC to achieve discharge anticipated Hgb >8. Patient was given IV hydration for her JAZLYN; her Cr downtrended to ~1.5 and remained stable; it was suspected to her baseline Cr as there were no other recent values in EMR. She developed increased urination during hospitalization; UA suggestive of UTI. Patient was treated with empiric Rocephin during hospitalization. Her HTN was also treated during hospitalization. She was given instructions to get outpatient BMP and CBC and f/u with her PCP and GI. - Time Spent with Patient Total time spent providing and/or coordinating discharge services: - Quality: VTE Deep Vein Thrombosis/Pulmonary Embolism Present on Admission: No Exam Vital signs: T 98.3F HR 61 RR 18 BP 109/59 O2 sat 98% Narrative: GENERAL: NAD SKIN: Warm and dry; no lesions EYES: EOM grossly I CARDIOVASCULAR: Regular rate and rhythm. Normal perfusion RESPIRATORY: CTAB; normal rate GASTROINTESTINAL: Abdomen soft, non-tender, nondistended MUSCULOSKELETAL: Grossly normal ROM and strength. Patient ambulating well NEUROLOGICAL: Grossly normal CN; grossly normal peripheral motor/sensory function Results Procedures completed during hospitalization: EGD- 02/01- esophagus with possible Goff's but otherwise unremarkable. Stomach with antral nodule vs submucosal mass suggestive of possible pancreatic etiology; biopsy obtained. Duodenum with linear ulcerations; no active bleeding. Biopsy obtained Completed studies during hospitalization: Pending at discharge 02/01/18 08:08 Surgical [PTH] Routine Discharge Plan - Discharge Disposition Patient Disposition: Discharge Home - Discharge Condition Condition: Stable - Discharge Order Discharge Orders: Discharge Order (Routine); Ordered 02/06/18 Ordered By: Yo Sorensen - Discharge Details Anticipated Discharge Date: 02/06/18 - Physicians Team Primary Care Provider: Britany Garg Attending Provider: Yo Sorensen Other Providers: Yosvany De La O MD ; Britany Garg
== END 2018-02-06 20:16 | disposition home or self-care (01) ==
LOC: NEPC 09:15 → NEDA 12:00 → N07 13:52
PROVIDERS: ADMIT Family Medicine; ATTEND Family Medicine